=== PATIENT | male | born 1950 | race Hispanic/Latino ===

== ENCOUNTER 2017-04-19 10:03 | Observation (INO) | payer MEDICARE ==
--- NOTE | 2017-04-19 10:05 | NUR ---
PATIENT TO ROOM AND PHYSICIAN AT BEDSIDE FOR EVAL
--- NOTE | 2017-04-19 10:10 | NUR ---
NITROSTAT AND APRESOLINE HELD AT THIS TIME PER MD VERBAL ORDER.
[2017-04-19 10:32] LABS: HEMOGLOBIN 14.3 g/dl (14.0-18.0); IMMATURE GRANULOCYTES 0.2 % (0.0-1.0); MEAN CELL VOLUME 92.3 fL CALC (80.0-100.0); MEAN CORPUSCULAR HGB 32.2 pG CALC (26.0-32.0); MEAN CORPUSCULAR HGB CONC 34.9 g/L CALC (32.0-36.0); NEUT# 3.57 thou/uL (1.82-7.42); RED BLOOD COUNT 4.44 mill/uL (4.70-6.10); RED CELL DISTRI WIDTH 13.9 % (11.5-15.5)
[2017-04-19] MEDS ORDERED: ATORVASTATIN CA40 MG PO (10:40)
[2017-04-19] MEDS ORDERED: BAYER ASPIRIN E81 MG PO (10:41)
[2017-04-19] MEDS ORDERED: CLOPIDOGREL75 MG PO (10:41)
[2017-04-19] MEDS ORDERED: METFORMIN500 MG PO (10:43)
[2017-04-19] MEDS ORDERED: GLIPIZIDE5 MG PO (10:43)
[2017-04-19] MEDS ORDERED: METOPROL TAR25 MG PO (10:44)
--- NOTE | 2017-04-19 11:00 | NUR ---
PATIENT RESTING ON STRETCHER ALERT AND ORIENTED X3, NO DISTRESS NOTED. REPORTS CHEST PAIN 1/10 AT THIS TIME. AT BEDSIDE, WILL CONTINUE TO MONITOR. CALL LIGHT WITHIN REACH, AT BEDSIDE.
[2017-04-19 11:11] LABS: ANION GAP 18 (6-22 (CALC)); BUN 12 mg/dL (8-23); BUN/CREATININE RATIO 14 (12-20 (CALC)); CARBON DIOXIDE 20 mmol/l (22-30); CHLORIDE 108 mmol/l (95-108); CREATININE 0.8 mg/dL (0.7-1.3); GFR > 60 ML/MIN (>=60 (CALC)); GFR FOR AFR.AMER. > 60 ML/MIN (>=60 (CALC)); POTASSIUM 4.4 mmol/l (3.5-5.1); SODIUM 141 mmol/l (137-146)
--- NOTE | 2017-04-19 11:40 | NUR ---
PATIENT RESTING ON STRETCHER UPDATED ON CARE PLAN, WILL CONTINUE TO MONITOR.
--- NOTE | 2017-04-19 11:42 | NUR ---
ATTEMPT MADE TO CALL REPORT, SPOKE TO NEYMAR. STATES "NURSE IS IN A PATIENT ROOM, I WILL HAVE HER CALL BACK."
--- NOTE | 2017-04-19 12:50 | NUR ---
LUNCH TRAY PROVIDED, UPDATED ON WAIT TIME, WILL CONTINUE TO MONITOR.
--- NOTE | 2017-04-19 13:39 | NUR ---
ATTEMPT MADE TO CALL REPORTS, SPOKE TO CYNTHIA. STATES "NURSE IS PASSING MEDS." WILL CALL BACK
--- NOTE | 2017-04-19 14:22 | NUR ---
REPORT GIVEN TO ADRIEN SALAS. STATES "I WILL CALL YOU BACK WHEN TELE AVAILABLE."
--- NOTE | 2017-04-19 14:30 | NUR ---
PATIENT AMBULATES TO BATHROOM WITH STEADY GAIT, URINE SAMPLE OBTAINED. REPORTS CHEST PAIN LEVEL 0/10 AT THIS TIME. INFORMED TO CALL FOR ASSISTANCE AND IF CHEST PAIN RETURNS. CALL LIGHT WITHIN REACH.
[2017-04-19 15:16] VITALS: BP 119/70
--- NOTE | 2017-04-19 15:20 | NUR ---
PATIENT TRANSPORTED TO [facility] WITH TELE VIA WHEELCHAIR. BEDSIDE REPORT GIVEN TO ADRIEN SALAS. CARE RELINQUIHSED.
[2017-04-19 15:23] LABS: URINE BILIRUBIN - DIPSTICK NEGATIVE (NEGATIVE); URINE BLOOD DIPSTICK NEGATIVE (NEGATIVE); URINE COLOR YELLOW; URINE GLUCOSE - DIPSTICK >=1000 mg/dL (NEGATIVE); URINE KETONE NEGATIVE (NEGATIVE); URINE LEUK ESTERASE NEGATIVE (NEGATIVE); URINE NITRITE - DIPSTICK NEGATIVE (Negative); URINE PH 5.5 (4.5-8.0); URINE PROTEIN - DIPSTICK NEGATIVE (NEG-TRACE); URINE SPECIFIC GRAVITY 1.015; URINE UROBILINOGEN - DIPSTICK 0.2 E.U./dL (0.2)
[2017-04-19 15:24] LABS: URINE CLARITY CLEAR
--- NOTE | 2017-04-19 16:02 | NUR ---
REPORT RECEIVED FROM MENDOZA ESPARZA ARRIVED ON UNIT VIA W/C @ 1510, ALERT AND ORIENTED X 4, ORIENTED TO ROOM AND CALL JUAREZ. DENIES PAIN AT THIS TIME, TELE MONITOR IN PLACE. REPORTED HE MOVED FROM [place] RECENTLY AND THAT MOVE HAS BEEN STRESSFUL FOR HIM. WILL CONTINUE TO MONITOR, SPOUSE JUST ARRIVED AND SITTING AT BEDSIDE.
--- NOTE | 2017-04-19 19:00 | NUR ---
RECEIVED CHANGE OF SHIFT REPORT FROM ADRIEN SALAS. PATIENT LYING IN BED AND APPEARS NOT TO BE IN ANY APPARENT ACUTE DISTRESS OR DISCOMFORT. DENIES PAIN. WILL CONTINUE TO MONITOR.
[2017-04-19 19:35] VITALS: BP 119/73
[2017-04-19 23:50] VITALS: BP 108/55
--- NOTE | 2017-04-20 | NUR ---
PATIENT RESTING QUIETLY. NO APPARENT ACUTE DISTRESS NOTED.
[2017-04-20 04:00] VITALS: BP 114/67
--- NOTE | 2017-04-20 04:00 | NUR ---
PATIENT RESTING QUIETLY AT THIS TIME. NO APPARENT ACUTE CHANGES NOTED IN PATIENT'S CONDITION.
[2017-04-20 06:17] LABS: HEMATOCRIT 38.4 % (39.0-50.0); HEMOGLOBIN 13.2 g/dl (14.0-18.0); MEAN CELL VOLUME 91.9 fL CALC (80.0-100.0); MEAN CORPUSCULAR HGB 31.6 pG CALC (26.0-32.0); MEAN CORPUSCULAR HGB CONC 34.4 g/L CALC (32.0-36.0); RED BLOOD COUNT 4.18 mill/uL (4.70-6.10); RED CELL DISTRI WIDTH 13.9 % (11.5-15.5)
[2017-04-20 06:33] LABS: ANION GAP 16 (6-22 (CALC)); BUN 10 mg/dL (8-23); BUN/CREATININE RATIO 13 (12-20 (CALC)); CALCULATED LDLCHOLESTEROL 84 mg/dL (62-129 (CALC)); CARBON DIOXIDE 21 mmol/l (22-30); CHLORIDE 111 mmol/l (95-108); CHOLESTEROL HDL RATIO 4.5 (<4.4 (CALC)); CREATININE 0.7 mg/dL (0.7-1.3); GFR > 60 ML/MIN (>=60 (CALC)); GFR FOR AFR.AMER. > 60 ML/MIN (>=60 (CALC)); HDL CHOLESTEROL 34 mg/dL (>=40); MAGNESIUM 1.8 mg/dL (1.6-2.3); SODIUM 144 mmol/l (137-146); TOTAL CHOLESTEROL 152 mg/dl (0-199); TOTAL TRIGLYCERIDES 171 mg/dl (30-149); VLDL CHOLESTROL 34 mg/dl (4-45 (CALC))
--- NOTE | 2017-04-20 07:23 | NUR ---
SHIFT CHANGE REPORT FROM MENDOZA KERNS SLEEPING COMFORTABLY AT THIS TIME, BREATHING EVEN AND NON-LABORED, TELE MONITOR IN PLACE, CALL JUAREZ IN REACH.
--- NOTE | 2017-04-20 07:46 | NUR ---
AWAKE ALERT AND ORIENTED SITTING UP AT BEDSIDE FOR MEAL, DENIES PAIN, SPOUSE JUST ARRIVED.
[2017-04-20 08:42] VITALS: BP 114/64
[2017-04-20 11:14] VITALS: BP 114/62
--- NOTE | 2017-04-20 15:04 | NUR ---
Discharge instructions given. Patient verbalizes understanding of same. Discharged in good condition via Wheelchair to Home with spouse. All belongings sent with pt.
== END 2017-04-20 15:05 | disposition home or self-care (01) ==
LOC: ED 10:03 → ED-I 11:12 → ED 11:31 → MS2 11:32
PROVIDERS: Family Medicine; ADMIT Internal Medicine; ATTEND Internal Medicine
PROC: 3E0234Z Introduction of Serum, Toxoid and Vaccine into Muscle, Percutaneous Approach (ICD-10-PCS; principal; 2017-04-20)
DX: R07.9 Chest pain, unspecified (principal); E11.9 Type 2 diabetes mellitus without complications; I10 Essential (primary) hypertension; Z95.5 Presence of coronary angioplasty implant and graft; Z95.1 Presence of aortocoronary bypass graft; Z79.84 Long term (current) use of oral hypoglycemic drugs; Z23 Encounter for immunization

== ENCOUNTER 2018-03-29 14:18 | Emergency (ER) | payer MEDICARE ==
[~2018-03-29] VITALS: Ht 175.3 cm; Wt 97.3 kg
[~2018-03-29 14:18] MED LIST: ATORVASTATIN CA40 MG PO; BAYER ASPIRIN E81 MG PO; CLOPIDOGREL75 MG PO; GLIPIZIDE5 MG PO; METFORMIN500 MG PO; METOPROL TAR25 MG PO
[2018-03-29 14:53] LABS: GFR > 60 ML/MIN (>=60 (CALC)); GFR FOR AFR.AMER. > 60 ML/MIN (>=60 (CALC))
[2018-03-29 15:02] LABS: HEMATOCRIT 39.2 % (39.0-50.0); HEMOGLOBIN 14.1 g/dl (14.0-18.0); IMMATURE GRANULOCYTES 0.3 % (0.0-5.0); MEAN CELL VOLUME 89.7 fL CALC (80.0-100.0); MEAN CORPUSCULAR HGB 32.3 pG CALC (26.0-32.0); NEUT# 3.07 thou/uL (1.82-7.42); RED BLOOD COUNT 4.37 mill/uL (4.70-6.10); RED CELL DISTRI WIDTH 12.1 % (11.5-15.5)
[2018-03-29 15:12] LABS: ALBUMIN 4.4 g/dL (3.2-5.0); ALKALINE PHOSPHATASE 68 u/l (38-126); ANION GAP 17 (6-22 (CALC)); BILIRUBIN, TOTAL 0.9 mg/dL (0.0-1.4); BUN 13 mg/dL (8-23); BUN/CREATININE RATIO 16 (12-20 (CALC)); CARBON DIOXIDE 21 mmol/l (22-30); CHLORIDE 105 mmol/l (95-108); CREATININE 0.8 mg/dL (0.7-1.3); GFR > 60 ML/MIN (>=60 (CALC)); GFR FOR AFR.AMER. > 60 ML/MIN (>=60 (CALC)); POTASSIUM 4.3 mmol/l (3.5-5.1); SGOT/AST 51 u/l (19-48); SODIUM 138 mmol/l (137-146); TOTAL PROTEIN 7.6 g/dL (6.3-8.2)
[2018-03-29 15:24] LABS: MYOGLOBIN 33 ng/mL (0 - 121)
[2018-03-29 16:25] VITALS: BP 141/68
== END 2018-03-29 16:25 | disposition short-term general hospital (02) ==
LOC: ED 14:18
PROVIDERS: Emergency Medicine
DX: I63.9 Cerebral infarction, unspecified (principal); R27.0 Ataxia, unspecified; I10 Essential (primary) hypertension; R29.703 NIHSS score 3; R53.1 Weakness; R42 Dizziness and giddiness; I65.23 Occlusion and stenosis of bilateral carotid arteries
CPT/HCPCS: Q9967

== ENCOUNTER → 2018-05-14 | Outpatient (REF) | payer MEDICARE ==
[2018-05-14 08:15] LABS: HEMATOCRIT 40.2 % (39.0-50.0); HEMOGLOBIN 13.7 g/dl (14.0-18.0); MEAN CELL VOLUME 92.4 fL CALC (80.0-100.0); MEAN CORPUSCULAR HGB 31.5 pG CALC (26.0-32.0); MEAN CORPUSCULAR HGB CONC 34.1 g/L CALC (32.0-36.0); RED BLOOD COUNT 4.35 mill/uL (4.70-6.10); RED CELL DISTRI WIDTH 13.1 % (11.5-15.5)
[2018-05-14 08:40] LABS: ALBUMIN 4.4 g/dL (3.2-5.0); ALKALINE PHOSPHATASE 73 u/l (38-126); ANION GAP 16 (6-22 (CALC)); BILIRUBIN, TOTAL 0.9 mg/dL (0.0-1.4); BUN 17 mg/dL (8-23); BUN/CREATININE RATIO 18 (12-20 (CALC)); CALCULATED LDLCHOLESTEROL 65 mg/dL (62-129 (CALC)); CARBON DIOXIDE 24 mmol/l (22-30); CHLORIDE 105 mmol/l (95-108); CHOLESTEROL HDL RATIO 3.5 (<4.4 (CALC)); CREATININE 0.9 mg/dL (0.7-1.3); GFR > 60 ML/MIN (>=60 (CALC)); GFR FOR AFR.AMER. > 60 ML/MIN (>=60 (CALC)); HDL CHOLESTEROL 40 mg/dL (>=40); POTASSIUM 4.2 mmol/l (3.5-5.1); SGOT/AST 21 u/l (19-48); SODIUM 140 mmol/l (137-146); TOTAL CHOLESTEROL 141 mg/dl (0-199); TOTAL TRIGLYCERIDES 178 mg/dl (30-149); VLDL CHOLESTROL 36 mg/dl (4-45 (CALC))
== END | disposition home or self-care (01) ==
LOC: LAB 07:36
PROVIDERS: ATTEND Internal Medicine
DX: I25.42 Coronary artery dissection (principal); I10 Essential (primary) hypertension; E11.42 Type 2 diabetes mellitus with diabetic polyneuropathy

== ENCOUNTER 2019-02-18 08:54 | Inpatient (IN) | payer MEDICARE ==
[~2019-02-18] VITALS: Ht 175.3 cm; Wt 94.6 kg
--- NOTE | 2019-02-18 08:54 | NUR ---
TO ROOM 12 VIA EMS
--- NOTE | 2019-02-18 09:07 | NUR ---
PT C/O FLU LIKE SYMTPOMS X 3-4 DAYS WEAKNESS, FEVERS, COUGH CONGESTION WITH N/V WELL, FELL AT HOME X 1 RELATED TO WEAKNESS, COMFORT MEASURES PROVIDED, CALL JUAREZ WITHIN REACH
[2019-02-18 09:24] LABS: IMMATURE GRANULOCYTES 0.9 % (0.0-5.0); MEAN CELL VOLUME 91.7 fL CALC (80.0-100.0); MEAN CORPUSCULAR HGB 31.4 pG CALC (26.0-32.0); MEAN CORPUSCULAR HGB CONC 34.2 g/L CALC (32.0-36.0); NEUT# 3.9 thou/uL (1.82-7.42); RED BLOOD COUNT 3.38 mill/uL (4.70-6.10); RED CELL DISTRI WIDTH 12.8 % (11.5-15.5)
[2019-02-18 09:36] LABS: ALKALINE PHOSPHATASE 56 u/l (38-126); BILIRUBIN, TOTAL 0.9 mg/dL (0.0-1.4); BUN 24 mg/dL (8-23); BUN/CREATININE RATIO 23 (12-20 (CALC)); CHLORIDE 106 mmol/l (95-108); GFR > 60 ML/MIN (>=60 (CALC)); GFR FOR AFR.AMER. > 60 ML/MIN (>=60 (CALC)); LIPASE 19 u/l (23-300); POTASSIUM 3.8 mmol/l (3.5-5.1); SGOT/AST 22 u/l (19-48); SODIUM 135 mmol/l (137-146)
[2019-02-18 09:40] LABS: ALBUMIN 3.1 g/dL (3.2-5.0); ANION GAP 15 (6-22 (CALC)); CARBON DIOXIDE 18 mmol/l (22-30); TOTAL PROTEIN 5.7 g/dL (6.3-8.2)
[2019-02-18 09:50] LABS: HEMOGLOBIN 10.6 g/dl (14.0-18.0)
--- NOTE | 2019-02-18 10:00 | NUR ---
INTO SEE PATIENT, PLAN OF CARE DISCUSSED
--- NOTE | 2019-02-18 11:07 | NUR ---
MD SPEAKING WITH PATIENT AND SPOUSE REGARDING ADMISSION
--- NOTE | 2019-02-18 12:01 | NUR ---
PT AWARE OF NEED FOR BC PRIOR TO RUNNING IV ABT, IVF INFUSING ORDERED
[2019-02-18] MEDS ORDERED: PROTONIX40 M2 PO (12:24)
--- NOTE | 2019-02-18 12:30 | NUR ---
LARGE BANDAIAD APPLIED TO WOUND ON INNER ASPECT OF LEFT GREAT TOE. SMALL AMOUTN SERO/SANG NANY NOTED
--- NOTE | 2019-02-18 13:00 | NUR ---
PT REMAINS AT MRI AWARE OF PENDING ADMISSION
--- NOTE | 2019-02-18 14:04 | NUR ---
RECEIVED [facility]O ER INTO ROOM 263 VIA STRETCHER. ADMISSION WEIGHT ON STANDING SCALE 94.6 KG. ASSISTED PATIENT INTO BED. ORIENTED TO SURROUNDINGS. EXPLAINED USE OF CALL JUAREZ AND BED CONTROLS.
--- NOTE | 2019-02-18 14:05 | NUR ---
PT TRANSFERRED TO MED SURG VIA WHEELCAHIR ON TELE AT SIDE AND ALL BELONGINGS SENT WITH PATIENT.
[2019-02-18 14:14] VITALS: BP 110/66
--- NOTE | 2019-02-18 14:25 | NUR ---
ADMISSION ASSESSMENT COMPLETED. RESP NON-LABORED. LUNGS CLEAR NO PERIPHERAL EDEMA, LUNGS CLEAR THROUGHOUT. IV IN LAC, SITE BENIGN. LR FLUID BOLUS IN PROGRESS. DISCUSSED PLAN OF CARE. ORDERED PATIENT A LUNCH TRAY. DENIES NEEDS AT THIS TIME.
--- NOTE | 2019-02-18 16:04 | NUR ---
RESTING IN BED WITHOUT COMPLAINTS. AT BEDSIDE.
--- NOTE | 2019-02-18 17:15 | NUR ---
PATIENT C/O CHILLS. TEMP 100.9. MEDICATED WITH TYLENOL 650 MG PO FOR TEMP ORDERED.
--- NOTE | 2019-02-18 17:30 | NUR ---
PHOTO DOCUMENTATION AND MEASUREMENTS DONE OF LEFT GREAT TOE WOUND. CULTURE OBTAINED WELL. PATIENT VOIDING CLEAR EDWARD URINE, URINE FOR UA SENT.
[2019-02-18 17:32] VITALS: BP 129/64
--- NOTE | 2019-02-18 18:15 | NUR ---
RECHECK OF TEMP 98.7.
[2019-02-18 19:12] LABS: URINE BILIRUBIN - DIPSTICK NEGATIVE (NEGATIVE); URINE BLOOD DIPSTICK SMALL (NEGATIVE); URINE COLOR YELLOW; URINE GLUCOSE - DIPSTICK 100 mg/dL (NEGATIVE); URINE KETONE NEGATIVE (NEGATIVE); URINE LEUK ESTERASE NEGATIVE (NEGATIVE); URINE NITRITE - DIPSTICK NEGATIVE (Negative); URINE PROTEIN - DIPSTICK TRACE mg/dL (NEG-TRACE); URINE SPECIFIC GRAVITY >=1.030; URINE UROBILINOGEN - DIPSTICK 0.2 E.U./dL (0.2)
[2019-02-18 19:13] VITALS: BP 101/54
[2019-02-18 19:39] LABS: URINE WBC 0-2 WBC/hpf (0-5)
[2019-02-18 22:04] VITALS: BP 92/48
--- NOTE | 2019-02-18 22:17 | NUR ---
2154-RECEIVED CALL FROM [facility] IN ER-STATES THAT LOOKS LIKE PATIENT HAS SWITCHED RYTHM ON TELE FROM SR TO A-FIB. PATIENT RESTING IN BED-ASYMPTOMATIC WITH NO C/O CHEST PAIN. NO PALPATATIONS, NO FLUTTER-NO SOB. VS TAKEN AND PMTLDSDG-IY-33/48, P-71, O2 SAT-96 ON O2 AND AFEBRILE-96.9. EKG WAS DONE AND SHOWS SR-WITH PREMATURE SUPRAVENTRICULAR COMPLEXES WITH OOC PVC'S. SAFETY PRECAUTIONS REINFORCED WITH PATIENT. CALL LIGHT IN REACH. WILL CONT TO MONITOR.
[2019-02-19] VITALS (14 sets, daily range): BP systolic 98–135; BP diastolic 52–68
--- NOTE | 2019-02-19 00:16 | NUR ---
PATIENT FOUND COMING OUT OF THE BR WITH TELE MONITOR DANGLING FREELY AND WHAT APPEARS TO BE URINE ON THE FLOOR AROUND HIS BED. PATIENT IS UNSTEADY ON HIS FEET. PATIENT STATES THAT HE IS HAVING TROUBLE CONTROLLING HIS URINE SINCE BEING HERE AT THE HOSPITAL. PATIENT MOVED FROM 263 TO 261 FOR SAFETY REASONS. PATIENT ORIENTED TO NEW ROOM AND SURROUNDINGS. IV ZOSYN HUNG AND INFUSING VIA LEFT ARM IV SITE. TELE MONITOR INPLACE. PATIENT ASSISTED WITH NEW GOWN. PATIENT PROVIDED WITH NEW URINAL AT BEDSIDE AND INSTRUCTIONS ON USE.. SAFETY PRECAUTIONS REINFORCED. CALL LIGHT IN REACH. WILL CONT TO MONITOR.
--- NOTE | 2019-02-19 04:26 | NUR ---
PATIENT RESTING IN BED-AWAKE AND ALERT. USING URINAL AT BEDSIDE TO URINATE. NO FURTHER INCONT OR SPILLAGE OF URINE. LEFT TOE BANDAID REMAINS INTACT. FOOT IS WARM AND DRY WITH GOOD PEDAL PULSES. IVF PATENT ANDINFUSING ORDERED VIA LEFT ARM IV SITE. SAFETY PRECAUTIONS REINFORCED. CALL LIGHT IN REACH. WILL CONT TO MONITOR.
[2019-02-19 04:56] LABS: HEMATOCRIT 34.5 % (39.0-50.0); HEMOGLOBIN 11.5 g/dl (14.0-18.0); MEAN CORPUSCULAR HGB 31.3 pG CALC (26.0-32.0); MEAN CORPUSCULAR HGB CONC 33.3 g/L CALC (32.0-36.0); RED BLOOD COUNT 3.67 mill/uL (4.70-6.10); RED CELL DISTRI WIDTH 12.9 % (11.5-15.5)
[2019-02-19 05:10] LABS: ANION GAP 13 (6-22 (CALC)); BUN 18 mg/dL (8-23); BUN/CREATININE RATIO 22 (12-20 (CALC)); CHLORIDE 105 mmol/l (95-108); CREATININE 0.8 mg/dL (0.7-1.3); GFR > 60 ML/MIN (>=60 (CALC)); GFR FOR AFR.AMER. > 60 ML/MIN (>=60 (CALC)); POTASSIUM 3.8 mmol/l (3.5-5.1); SODIUM 136 mmol/l (137-146)
[2019-02-19 05:14] LABS: CARBON DIOXIDE 22 mmol/l (22-30)
--- NOTE | 2019-02-19 08:00 | NUR ---
ASSESSMENT DONE. TELE IN PLACE. PT IS A&O X3. IVF INFUSING WELL. PT NPO. PT DENIES PAIN AT THIS TIME. LEFT DRESSING IN PLACE. RESPS EVEN AND UNLABORED. PT DENIES ANY NEEDS AT THIS TIME. CALL LIGHT IN REACH.
--- NOTE | 2019-02-19 11:17 | NUR ---
PT IS SITTING IN RECLINER WITH NO S/S OF DISTRESS NOTED. IN ROOM. CALL LIGHT IN REACH.
--- NOTE | 2019-02-19 11:36 | NUR ---
PT WENT TO OR VIA STRETCHER BY FAITH AND AT SIDE.
--- NOTE | 2019-02-19 14:10 | NUR ---
PT CAME FROM OR VIA STRETCHER BY MIN. LEFT FOOT WOUND VAC IN PLACE WITH DRESSING CDI. PT DENIES PAIN AT THIS TIME. IVF INFUSING WELL. EDUCATED PT HOW TO USE THE I.S. PO FLUIDS PROVIDED. CALL LIGHT IN REACH.
--- NOTE | 2019-02-19 15:04 | NUR ---
MEDICATED PT WITH TYLENOL FOR 100.8. MADE ROOM COOL. PT IN ROOM. PT DENIES PAIN AT THIS TIME. CALL LIGHT IN REACH.
[2019-02-19] MEDS ORDERED: LEVEMIR FL100 UNIT/M SC (15:53)
--- NOTE | 2019-02-19 16:47 | NUR ---
S: JOSEP BRIGHT is a 68 M who presents with cellulitis of left foot. He has a history of T2DM, HTN, CAD s.p CABG, TIA, left foot I&D x 5 weeks ago All medications in patient's chart were reviewed. O: VS: BP 109/59 mmHg , P 77, RR 20, ,T 100.5, TMAX 100.8 W 94.6kg, HT69 inches, Scr=0.8,CrCl= 79.2ml/min A: Blood cultures are pending, wound culture of left toe positive for gram negative rods, awaiting final sensitivity. P: Patient is on Zosyn 3.375gm IV q6h. Vancomycin ordered for pharmacy to dose. Start Vancomycin 1.25G IV Q12H @ 0900, 2100. Vancomycin trough to be drawn on 02/20 @ 2030, 30 minutes prior to the 4th dose. Vancomycin goal trough is between 15-20 mcg/ml. Pharmacy will follow and or advise on antibiotics use as needed.
--- NOTE | 2019-02-19 19:10 | NUR ---
REPORT FROM JONATAN JURADO. PT RESTING IN BED. ALERT AND ORIENTED. NO APPARENT DISTRESS NOTED. LEFT FOOT ELEVATED ON PILLOW. DENIES ANY PAIN OR DISCOMFORT. IV SITE APPEARS HEALTHY. IS AT BEDSIDE, PT DEMONSTATES PROPER USE. AFEBRILE AT THIS TIME. DISCUSSED POC. PT VERBALIZED UNDERSTANDING. CALL LIGHT WITHIN REACH. WILL CONTINUE TO MONITOR.
--- NOTE | 2019-02-19 21:50 | NUR ---
PT C/O SOB. PT ASSISTED OUT OF BED AND PLACED IN RECLINER PER REQUEST. LEFT FOOT ELEVATED ON PILLOW. WOUND VAC AND DRESSING INTACT. 02 SAT 95% ON 2L/M VIA NC. LUNG SOUNDS CLEAR. PT DENIES ANY HX OF RESPIRATORY ISSUES. ONCE SITTING UP IN CHAIR PT STATES HE FEELS MUCH BETTER. VS WNL. ENCOURGAED TURN, COUGH, AND DEEP BREATHING EXERCISE AND USE OF IS, PT DEMONSTRATES PROPER USE. WILL CONTINUE TO MONITOR.
--- NOTE | 2019-02-19 22:53 | NUR ---
PT RESTING IN CHAIR. RESPIRATIONS EVEN AND UNLABORED. PT DENIES ANY PAIN OR DISCOMFORT. IV ABT INFUSING WITHOUT DIFFICULTY, NO S/S OF ADVERSE REACTION NOTED. CALL LIGHT WITHIN REACH. WILL CONTINUE TO MONITOR.
--- NOTE | 2019-02-20 02:15 | NUR ---
PT SITTING UP IN CHAIR RESTING WITH EYES CLOSED. NO APPARENT RESPIRATORY DISTRESS NOTED. RESPIRATIONS EVEN AND UNLABORED. CALL LIGHT WITHIN REACH. WILL CONTINUE TO MONITOR.
[2019-02-20 03:39] VITALS: BP 106/64
[2019-02-20 04:45] LABS: HEMATOCRIT 31.7 % (39.0-50.0); HEMOGLOBIN 10.8 g/dl (14.0-18.0); IMMATURE GRANULOCYTES 0.4 % (0.0-5.0); MEAN CELL VOLUME 91.4 fL CALC (80.0-100.0); MEAN CORPUSCULAR HGB 31.1 pG CALC (26.0-32.0); MEAN CORPUSCULAR HGB CONC 34.1 g/L CALC (32.0-36.0); NEUT# 3.51 thou/uL (1.82-7.42); RED BLOOD COUNT 3.47 mill/uL (4.70-6.10); RED CELL DISTRI WIDTH 13.1 % (11.5-15.5)
[2019-02-20 05:03] LABS: ANION GAP 14 (6-22 (CALC)); BUN 13 mg/dL (8-23); BUN/CREATININE RATIO 16 (12-20 (CALC)); CARBON DIOXIDE 23 mmol/l (22-30); CHLORIDE 102 mmol/l (95-108); CREATININE 0.9 mg/dL (0.7-1.3); GFR > 60 ML/MIN (>=60 (CALC)); GFR FOR AFR.AMER. > 60 ML/MIN (>=60 (CALC)); MAGNESIUM 2.1 mg/dL (1.6-2.3); SODIUM 135 mmol/l (137-146)
--- NOTE | 2019-02-20 06:25 | NUR ---
ASSISTED PT BACK TO BED. DENIES ANY PAIN OR DISCOMFORT. RESPIRATIONS EVEN AND UNLABORED. FOOT ELEVATED ON PILLOW. WOUND VAC FUNCTIONING PROPERLY WITH CONTINUOUS SUCTION AT 125MMHG. CALL LIGHT WITHIN REACH. WILL CONTINUE TO MONITOR.
[2019-02-20 07:31] VITALS: BP 128/57
--- NOTE | 2019-02-20 07:32 | NUR ---
ASSESSMENT DONE. PT IS A&O X2. PT HAS A TEMP OF 100.9. MADE ROOM COOL. MEDICATED PT WITH TYLENOL. PT DENIES PAIN AT THIS TIME. PT STATED HE FEELS BETTER THAN LAST NIGHT. PT BEEN USING THE I.S. IVF INFUSING WELL. LEFT FOOT DRESSING IN PLACE WITH WOUND VAC. PT DENIES NEEDS AT THIS TIME. CALL LIGHT IN REACH.
--- NOTE | 2019-02-20 09:37 | NUR ---
I ENTERED THE CONSULTAION ORDERED FOR INFECTIOUS DISEASE @0924 AM. THE CONSULT WAS FOR FEVERS FROM POST OP LEFT FOOT CELLULITUS. WAITING FOR DR. WALLS TO RESPOND.
[2019-02-20 11:22] VITALS: BP 103/57
--- NOTE | 2019-02-20 12:00 | NUR ---
PT IS SITTING IN RECLINER RESTING. IN ROOM. O2 AT 2L VIA NC. PT DENIES ANY NEEDS OR PAIN. CALL LIGHT IN REACH.
--- NOTE | 2019-02-20 16:00 | NUR ---
PT IS SITTING IN RECLINER WITH LEFT LEG IS ELEVATED. PT STATED PAIN MEDICATION HELPED. PT DENIES ANY NEEDS AT THIS TIME. CALL LIGHT IN REACH.
[2019-02-20 17:22] VITALS: BP 117/62
[2019-02-20 18:55] VITALS: BP 127/70
--- NOTE | 2019-02-20 19:00 | NUR ---
REPORT FROM JONATAN JURADO. PT SITTING UP IN CHAIR AT BEDSIDE. ALERT AND ORIENTED. NO APPARENT DISTRESS NOTED. LEFT FOOT ELEVATED ON PILLOW. DENIES ANY PAIN OR DISCOMFORT. IV SITE APPEARS HEALTHY. IS AT BEDSIDE, PT DEMONSTATES PROPER USE. AFEBRILE AT THIS TIME. DRESSING TO LEFT FOOT CDI WITH WOUND VAC FUNCTIONING PROPERLY AT 125MMHG CONTINUOUS SUCTION. DISCUSSED POC. PT VERBALIZED UNDERSTANDING. CALL LIGHT WITHIN REACH. WILL CONTINUE TO MONITOR.
--- NOTE | 2019-02-20 19:32 | NUR ---
ID CONSULT WITH DR WALLS VIA TELECONSULT SERVICE.
[2019-02-20 23:49] VITALS: BP 112/64
--- NOTE | 2019-02-20 23:55 | NUR ---
ASSISTED PT BACK TO BED. NO APPARENT DISTRESS NOTED. FOOT ELEVATED ON PILLOWS. IV ABT INFUSING WITHOUT DIFFICULTY. PT DENIES ANY OTHER WANTS OR NEEDS. CALL LIGHT WITHIN REACH. WILL CONTINUE TO MONITOR.
--- NOTE | 2019-02-21 03:42 | NUR ---
PT RESTING IN BED. NO APPARENT DISTRESS NOTED. RESPIRATIONS EVEN AND UNLABORED. FOOT ELEVATED ON PILLOW. WOUND VAC FUNCTIONING PROPERLY WITH CONTINUOUS SUCTION AT 125MMHG. CALL LIGHT WITHIN REACH. WILL CONTINUE TO MONITOR.
[2019-02-21 03:43] VITALS: BP 151/65
[2019-02-21 04:51] LABS: HEMATOCRIT 27.7 % (39.0-50.0); HEMOGLOBIN 9.9 g/dl (14.0-18.0); IMMATURE GRANULOCYTES 0.3 % (0.0-5.0); MEAN CELL VOLUME 88.8 fL CALC (80.0-100.0); MEAN CORPUSCULAR HGB 31.7 pG CALC (26.0-32.0); MEAN CORPUSCULAR HGB CONC 35.7 g/L CALC (32.0-36.0); NEUT# 4.18 thou/uL (1.82-7.42); RED BLOOD COUNT 3.12 mill/uL (4.70-6.10); RED CELL DISTRI WIDTH 12.9 % (11.5-15.5)
[2019-02-21 05:05] LABS: ANION GAP 12 (6-22 (CALC)); BUN 9 mg/dL (8-23); BUN/CREATININE RATIO 13 (12-20 (CALC)); CARBON DIOXIDE 23 mmol/l (22-30); CHLORIDE 103 mmol/l (95-108); CREATININE 0.7 mg/dL (0.7-1.3); GFR > 60 ML/MIN (>=60 (CALC)); GFR FOR AFR.AMER. > 60 ML/MIN (>=60 (CALC)); MAGNESIUM 1.9 mg/dL (1.6-2.3); POTASSIUM 3.4 mmol/l (3.5-5.1); SODIUM 135 mmol/l (137-146)
[2019-02-21 07:30] VITALS: BP 109/61
--- NOTE | 2019-02-21 08:40 | NUR ---
ASSESSMENT IS COMPLTED: IV SITE IS FREE FROM REDNESS OR EDEMA. HR IS REG,PULSES ARE STRONG X4, ABD IS SOFT WITH ACTIVE BS. BREATH SOUNDS ARE CLEAR, BILATERALLY. DRESSING ON LEFT FOOT IS CDI. WOUND VAC DRESSING IS OFF FOR NOW DR MACK IN TO VISIT WITH PT.
--- NOTE | 2019-02-21 12:15 | NUR ---
PT IS SITTING IN THE CHAIR, DR. SEXTON IN TO VISIT WITH PT AND SPOUSE WILL PLAN TO RELEASE TOMORROW. DR THAKUR FROM WOUND CARE WILL SEE PT TOMORROW FOR THE WOUND VAC PLACEMENT., IV SITE REMAINS FREE FROM REDNESS OR EDEMA.
[2019-02-21 15:15] VITALS: BP 115/64
--- NOTE | 2019-02-21 16:30 | NUR ---
PT HAS BEEN IN THE CHAIR WITH NO DISTRESS NOTED. IV SITE IS FREE FROM REDNESS OR EDEMA.
[2019-02-21 18:55] VITALS: BP 145/67
--- NOTE | 2019-02-21 20:15 | NUR ---
PT SITTING IN RECLINER WATCHING TV. A&O X3. NO DISTRESS NOTED. NO NEEDS AT THIS TIME. WOUND VAC IN PLACE @ 125 MMHG CONTINIOUS SUCTION. DISCUSSED POC. ASSESSMENT COMPLETED AT THIS TIME. CALL LIGHT IN REACH CONTINUE TO MONITOR.
[2019-02-21 23:42] VITALS: BP 129/63
--- NOTE | 2019-02-21 23:50 | NUR ---
PT SITTING IN RECLINER WATCHING TV. NO DISTRESS NOTED. CALL LIGHT IN REACH CONTINUE TO MONITOR.
--- NOTE | 2019-02-22 02:01 | NUR ---
PT SITTING IN RECLINER WATCHING TV. NO DISTRESS NOTED. CALL LIGHT IN REACH. CONTINUE TO MONITOR.
[2019-02-22 03:40] VITALS: BP 144/66
--- NOTE | 2019-02-22 05:49 | NUR ---
PT SITTING IN RECLINER WATCHING TV. NO DISTRESS NOTED. NO NEEDS AT THIS TIME. CALL LIGHT IN REACH CONTINUE TO MONITOR.
[2019-02-22 07:30] VITALS: BP 119/57
--- NOTE | 2019-02-22 07:30 | NUR ---
DR SEXTON IN TO VISIT WITH PT. REMOVED THE DRESSING ON HIS LEFT FOOT. REPLACED WITH FRESH DRESSING FOR THE WOUND VAC. COVERED WITH 4X4 AND KERLIX THEN AYE WRAP TO KEEP IT IN PLACE AND PROTECT THE SKIN. PT TOLERATED WELL. INCISION LOOKS CDI. WITH SUTURES INTACT. MINIMAL AMOUNT OF BLOODY DRAINAGE. SKIN IS PUFFY ON THE TOE AND HAS RED FLESH SHOWING IN THE INCISION. DR SEXTON USING CLEAN TECHNIQUE.
--- NOTE | 2019-02-22 08:15 | NUR ---
ASSESSMENT IS COMPLETED: IV SITE IS FREE FROM REDNESS OR EDEMA. NOTED. HR IS REG,PULSES ARE STRONG X4, ABD IS SOFT WITH ACTIVE BS, BREATH SOUNDS ARE CLEAR,BILATERALLY. O2 @ 2LITERS WITH NC. PRN. DRESSING ON LEFT FOOT IS CDI.
[2019-02-22 09:14] VITALS: BP 119/57
--- NOTE | 2019-02-22 09:58 | NUR ---
DR THAKUR WOUND CARE INT O VISIT WITH PT WILL SEE PT OUTPATIENT NEXT MONDAY WILL CALL WITH AN APPOINTMENT TIME. CHANGED OVER TO THE WOUND VAC TO [facility] HOME. INSTRUCTIONS GIVEN TO AND PT. VERBALIZED UNDERSTANDING.
[2019-02-22] MEDS ORDERED: LEVAQUIN750 MG PO (11:43)
--- NOTE | 2019-02-22 12:00 | NUR ---
PT HAS BEEN IN THE CHAIR [facility] FOR THE DR TO COME AND MAKE ROUNDS FOR DISCHARGE. CONTINUE TO OSBERVE AND MONITOR.
--- NOTE | 2019-02-22 14:46 | NUR ---
PT RECEIVED DISCHARGE INSTRUCTIONS AND IV SITE DISCONTINEUD CATHETER INTACT. NO REDNESS OR EDEMA. FAMILY IN THE ROOM. SURGICAL SHOE IS INTACT. MEDIUM FITS NICELY. Discharge instructions given. Patient verbalizes understanding of same. Discharged in stable condition via Wheelchair to Home with family. All belongings sent with pt.[facility]. AND WOUND CLINIC INVOLVED IN HIS CARE. GAVE LITERATURE ON THE CELLULITIS .
== END 2019-02-22 14:42 | disposition home health service (06) | DRG 857 ==
LOC: ED 08:54 → ED-I 11:10 → ED 11:29 → MS2 11:30
PROVIDERS: Family Medicine; Nurse Practitioner Family; ADMIT Internal Medicine; ATTEND Internal Medicine
PROC: 0JBR0ZZ Excision of Left Foot Subcutaneous Tissue and Fascia, Open Approach (ICD-10-PCS; principal; 2019-02-19)
DX: T81.41XA Infection following a procedure, superficial incisional surgical site, initial encounter (principal); T81.31XA Disruption of external operation (surgical) wound, not elsewhere classified, initial encounter; E11.628 Type 2 diabetes mellitus with other skin complications; L03.032 Cellulitis of left toe; E83.42 Hypomagnesemia; E87.6 Hypokalemia; I10 Essential (primary) hypertension; E11.42 Type 2 diabetes mellitus with diabetic polyneuropathy; E78.5 Hyperlipidemia, unspecified; I25.10 Atherosclerotic heart disease of native coronary artery without angina pectoris; F17.290 Nicotine dependence, other tobacco product, uncomplicated; B96.20 Unspecified Escherichia coli [E. coli] as the cause of diseases classified elsewhere; Y83.8 Other surgical procedures as the cause of abnormal reaction of the patient, or of later complication, without mention of misadventure at the time of the procedure; Z79.84 Long term (current) use of oral hypoglycemic drugs; Z95.1 Presence of aortocoronary bypass graft; Z95.5 Presence of coronary angioplasty implant and graft; Z91.19 Patient's noncompliance with other medical treatment and regimen; Z86.73 Personal history of transient ischemic attack (TIA), and cerebral infarction without residual deficits
CPT/HCPCS: G0378; J1650; J3370; J3475; Q3014

== ENCOUNTER 2019-03-05 11:28 | Inpatient (IN) | payer MEDICARE ==
[~2019-03-05] VITALS: Ht 175.3 cm; Wt 95.3 kg
[~2019-03-05 11:28] MED LIST changes: +LEVAQUIN750 MG PO; +LEVEMIR FL100 UNIT/M SC; +PROTONIX40 M2 PO
--- NOTE | 2019-03-05 12:21 | NUR ---
TRIAGED AND RETURNED TO LOBBY IN CARE OF IN NO DISTRESS
--- NOTE | 2019-03-05 13:00 | NUR ---
PT IS RESTING ON STRETCHER. PT ADVISED OF BUSY ER AND WAIT TIME. PT AND VERBALIZED UNDERSTANDING. CALL LIGHT WITHIN REACH
--- NOTE | 2019-03-05 14:00 | NUR ---
PT ADVISED OF CONTINUED WAIT TIME. PT AND DEMONSTRATED UNDERSTANDING. CALL LIGHT WITHIN REACH
[2019-03-05 14:25] LABS: HEMATOCRIT 30.6 % (39.0-50.0); HEMOGLOBIN 10.3 g/dl (14.0-18.0); IMMATURE GRANULOCYTES 0.6 % (0.0-5.0); MEAN CELL VOLUME 92.7 fL CALC (80.0-100.0); MEAN CORPUSCULAR HGB 31.2 pG CALC (26.0-32.0); MEAN CORPUSCULAR HGB CONC 33.7 g/L CALC (32.0-36.0); NEUT# 5.08 thou/uL (1.82-7.42); RED BLOOD COUNT 3.3 mill/uL (4.70-6.10); RED CELL DISTRI WIDTH 13.1 % (11.5-15.5)
[2019-03-05 14:42] LABS: PROTHROMBIN TIME 10.8 SECONDS (9.0-12.5)
[2019-03-05 14:51] LABS: ALBUMIN 3.6 g/dL (3.2-5.0); BILIRUBIN, TOTAL 0.6 mg/dL (0.0-1.4)
[2019-03-05 14:52] LABS: CREATININE 3.8 mg/dL (0.7-1.3); POTASSIUM 4.9 mmol/l (3.5-5.1)
--- NOTE | 2019-03-05 15:20 | NUR ---
PT PRESENTS WITH SOB THAT STARTED TWO DAYS AGO. PT STATES GAINING 25 LBS IN TWO DAYS AND THAT HE HAS INCREASED IN GIRTH AROUND THE ABDOMEN AND SWELLING IN THE LOWER LEGS BILATERALLY. PT DENIES ANY PAIN. RIGHT LUNG SOUNDS CLEAR AND LEFT UPPER LOBE SOUNDS CLEAR WELL. THE LEFT LOWER LOBES HAS CRACKLES. PT CAP REFILL IS BRISK. PT ALSO STATES BEING ABLE TO URINATE REGULARLY. WILL CONTINUE TO MONITOR.
--- NOTE | 2019-03-05 16:19 | NUR ---
MD IN ROOM DISCUSSING PLAN OF CARE AND DX. PT DENIES ANY NEEDS AT THIS TIME
[2019-03-05 16:35] LABS: URINE BILIRUBIN - DIPSTICK NEGATIVE (NEGATIVE); URINE BLOOD DIPSTICK LARGE (NEGATIVE); URINE COLOR YELLOW; URINE GLUCOSE - DIPSTICK NEGATIVE (NEGATIVE); URINE KETONE NEGATIVE (NEGATIVE); URINE LEUK ESTERASE TRACE (NEGATIVE); URINE NITRITE - DIPSTICK NEGATIVE (Negative); URINE PH 5.5 (4.5-8.0); URINE PROTEIN - DIPSTICK 100 mg/dL (NEG-TRACE); URINE SPECIFIC GRAVITY >=1.030; URINE UROBILINOGEN - DIPSTICK 0.2 E.U./dL (0.2)
[2019-03-05 16:39] LABS: URINE WBC 0-2 WBC/hpf (0-5)
--- NOTE | 2019-03-05 17:11 | NUR ---
PT STATES THAT HIS WOUND VAC MACHINE IS DISFUNCTIONING. THE MONITOR SHOWS THAT THERE IS A LEAK. THE OUTER DRESSING WAS UNWRAPPED. IT LOOKS LIKE THE VAC LIFTED UP A BIT, OUT OF MY SCOPE OF PRACTICE, SO PT NOTIFIED AND SUGGESTIONS DISCUSSED ON CALLING WOUND CLINIC. PT VERBALIED UNDERSTANDING.
--- NOTE | 2019-03-05 18:25 | NUR ---
PT NOTIFIED OF PLAN OF CARE, AND THAT A STEPHENSON CATHETER WOULD HAVE TO BE DONE. EDU WAS PROVIDED AND PT VERBALIZED UNDERSTANDING. PT IS NOT TO COMFORTABLE ABOUT THE NEWS BUT STATES "I KNOW IT HAS TO BE DONE"
--- NOTE | 2019-03-05 19:09 | NUR ---
BP DOES NOT SEEM TO LOWER EVEN AFTER STEPHENSON INSERTION AND FLUID ELIMINATION. NOTIFIED BP 201/95
--- NOTE | 2019-03-05 19:58 | NUR ---
PT TRANSPORTED OUT OF ER VIA STRETCHER STABLE AND IN NO DISTRESS TO MED SURG. CARE ASSUMED TO [facility]
--- NOTE | 2019-03-05 20:06 | NUR ---
DAVON MOLINA TO [facility]
--- NOTE | 2019-03-05 20:21 | NUR ---
PT ARIVED TO THE FLOOR ACCOMPANIED BY ED STAFF. PT ALERT AND ORIENTED, FAMILY AT BEDSIDE. VS OBTAINED AND ASSESSMENT COMPLETED. RESPIRATIONS LABORED, LUNGS SOUND DIMINISHED. PEDAL PULSE WEAK. PT REPORTS HAVING PAIN IN HIS PENIS ONLY WHEN REPOSITIONING. STEPHENSON DRAINING BLOOD TINGED URINE TO GRAVITY, MD AWARE. TELE IN PLACE. PT ORIENTED TO ROOM AND CALL JUAREZ SYSTEM. SAFETY PRECAUTIONS IN PLACE. WILL CONTINUE TO MONITOR.
--- NOTE | 2019-03-05 23:45 | NUR ---
PT RESTING IN BED. RESPIRATIONS LABORED. STEPHENSON DRAINING TO GRAVITY. SAFETY PRECAUTIONS IN PLACE. WILL CONTINUE TO MONITOR.
[2019-03-06] VITALS (8 sets, daily range): BP systolic 141–175; BP diastolic 76–89
--- NOTE | 2019-03-06 04:00 | NUR ---
PT RESTING IN BED. RESPIRATIONS LABORED. STEPHENSON DRAINING TO GRAVITY. TELE IN PLACE. PT PROVIDED WITH ICE CHIPS PER REQUEST. SAFETY PRECAUTIONS IN PLACE. WILL CONTINUE TO MONITOR.
[2019-03-06 05:59] LABS: HEMATOCRIT 34.5 % (39.0-50.0); HEMOGLOBIN 11.5 g/dl (14.0-18.0); IMMATURE GRANULOCYTES 0.7 % (0.0-5.0); MEAN CORPUSCULAR HGB CONC 33.3 g/L CALC (32.0-36.0); NEUT# 8.47 thou/uL (1.82-7.42); RED BLOOD COUNT 3.71 mill/uL (4.70-6.10); RED CELL DISTRI WIDTH 13.2 % (11.5-15.5)
[2019-03-06 06:17] LABS: CREATININE 3.3 mg/dL (0.7-1.3)
[2019-03-06 06:22] LABS: POTASSIUM 5.9 mmol/l (3.5-5.1)
--- NOTE | 2019-03-06 07:50 | NUR ---
PT RESTING IN BED, NO SIGNS OF DISTRESS NOTED, RESP EVEN AND LABORED. PT ALERT AND ORIENTED X3, 02 SAT 96%. [facility], DRESSING CDI. STEPHENSON DRAINING BLOODY DRAINAGE, NO CLOTS NOTED AT THIS TIME. DISCUSSED POC, ENCOURAGED PT TO SIT IN CHAIR AT BEDSIDE, PT AGREED. ASSISTED PT TO CHAIR, CALL LIGHT IN REACH,CONTINUE TO MONITOR.
--- NOTE | 2019-03-06 09:05 | NUR ---
INFORMED BUTTER PRINTER OF BLOODY URINE, AND SOB ON EXERTION. ORDERS FOR STAT CXR AND BNP. PT VERBALIZED UNDERSTANDING. CALL LIGHT IN REACH,CONTINUE TO MONITOR.
--- NOTE | 2019-03-06 09:52 | NUR ---
RADIOLOGY AT BEDSIDE FOR CXR
--- NOTE | 2019-03-06 10:30 | NUR ---
PT CALLED REQUESTING TO RETURN TO BED, ASSISTED PT TO BED, STEPHENSON REMAINS; DRAINAGE AND RED BLOODY. WOUND VAC CONTINUES, DRESSING CDI. CALL LIGHT IN REACH,CONTINUE TO MONITOR.
--- NOTE | 2019-03-06 12:50 | NUR ---
PT GIVEN KAYEXALATE, BECAME NAUSEOUS. IV ZOFRAN ORDERED AND GIVEN. PT ON BSC HAVING A BM, WILL SEND TO LAB FOR TESTING.
--- NOTE | 2019-03-06 13:40 | NUR ---
BP RECHECKED AFTER LASIX GIVEN 175/82 IV APRESOLINE GIVEN BY RN.
--- NOTE | 2019-03-06 14:00 | NUR ---
INFORMED DIRECTOR MBA OF 150CC OF URINE OUT AFTER 40MG IV LASIX, DIRECTOR MBA TO ORDER MORE LASIX, DISCUSSED WITH PT AND , BOTH AGREE.
--- NOTE | 2019-03-06 14:30 | NUR ---
PT SITTING IN CHAIR AT BEDSIDE, RECHECKED BP. PT APPEARS MUCH BETTER, NO SIGNS OF DISTRESS NOED, RESP EVEN AND UNLABORED. AT BEDSIDE, CALL LIGHT IN REACH,CONTINUE TO MONITOR.
[2019-03-06 14:46] LABS: C. DIFFICILE TOXIN A&B NEGATIVE (NEGATIVE)
--- NOTE | 2019-03-06 16:35 | NUR ---
MD AND SUPERVISOR TRANSFERRING AND BOXING AT BEDSIDE TO DISCUSS POC, SCROTUM EXAMINED, MD TO START NYSTATIN POWDER TO AREA. NOTED AREA SWOLLEN,DRY, AND REDDENED. PT BLADDER SCANNED RESULTS 0, REPORTED RESULT TO MD. CALL LIGHT IN REACH,CONTINUE TO MONITOR.
--- NOTE | 2019-03-06 21:40 | NUR ---
PT RESTING IN BED, ALERT AND ORIENTED. RESPIRATIONS EVEN AND UNLABORED ON O2 @ 2L VIA NC. LUNGS SOUND DIMINISHED. PT DENIES ANY PAIN OR DISCOMFORT AT THIS TIME. PT PROVIDED WITH A BLANKET PER REQUEST. STEPHENSON DRAING TO GRAVITY. SAFETY PRECAUTIONS IN PLACE. WILL CONTINUE TO MONITOR.
[2019-03-07] VITALS (10 sets, daily range): BP systolic 141–171; BP diastolic 74–92
--- NOTE | 2019-03-07 00:20 | NUR ---
PT RESTING IN BED, RESPIRATIONS EVEN AND UNLABORED ON O2 @ 2L VIA NC. NO S/S OF DISTRESS AT THIS TIME. SAFETY PRECAUTIONS IN PLACE. WILL CONTINUE TO MONITOR.
--- NOTE | 2019-03-07 04:01 | NUR ---
PT RESTING IN BED. RESPIRATIONS EVEN AND UNLABORED ON O2 @ 2L VIA NC. STEPHENSON DRAINING TO GRAVITY. WOUND VAC IN PLACE. CALL JUAREZ WITHIN REACH. WILL CONTINUE TO MONITOR.
[2019-03-07 05:18] LABS: HEMATOCRIT 31.1 % (39.0-50.0); HEMOGLOBIN 10.3 g/dl (14.0-18.0); IMMATURE GRANULOCYTES 0.3 % (0.0-5.0); MEAN CELL VOLUME 95.4 fL CALC (80.0-100.0); MEAN CORPUSCULAR HGB 31.6 pG CALC (26.0-32.0); MEAN CORPUSCULAR HGB CONC 33.1 g/L CALC (32.0-36.0); NEUT# 5.06 thou/uL (1.82-7.42); RED BLOOD COUNT 3.26 mill/uL (4.70-6.10); RED CELL DISTRI WIDTH 13.4 % (11.5-15.5)
[2019-03-07 05:51] LABS: ALBUMIN 2.9 g/dL (3.2-5.0); BILIRUBIN, TOTAL 0.6 mg/dL (0.0-1.4); CREATININE 2.9 mg/dL (0.7-1.3); POTASSIUM 4.8 mmol/l (3.5-5.1); TOTAL PROTEIN 5.8 g/dL (6.3-8.2)
--- NOTE | 2019-03-07 07:40 | NUR ---
DR SEXTON AT BEDSIDE, WOUND VAC TO BE CHANGED TOMORROW.
--- NOTE | 2019-03-07 08:05 | NUR ---
PT SITTING IN BED WITH AT BEDSIDE. A&O X3. SHALLOW BREATHING NOTED. DIMINISHED BREATH SOUNDS UPON AUSCULTATION. O2 NC @2L/MIN. STEPHENSON CATHETER IN PLACE DRAINING VIA GRAVITY, [place] RED URINE NOTED. +2 PITTING EDEMA NOTED TO BILATERAL LEGS. NO PAIN AT THIS TIME. DISCUSSED POC. ASSESSMENT COMPLETED AT THIS TIME. CALL LIGHT IN REACH CONTINUE TO MONITOR.
--- NOTE | 2019-03-07 09:34 | NUR ---
IV LASIX 40 MG GIVEN. PT TOLERATED WELL.
--- NOTE | 2019-03-07 10:50 | NUR ---
ORDERS TO TRANSFER PT TO ICU REC FROM [facility]. ABG BLOOD GAS OBTAINED FROM RT. PT TO GO TO ICU ON BIPAP TO HELP THE PT WITH HIS BREATHING. UPDATED PT AND ON POC. PT AND VERBALIZED UNDERSTANDING.
--- NOTE | 2019-03-07 10:51 | NUR ---
350 OUTPUT NOTED IN STEPHENSON CATH. URINE YELLOW AND CLEAR IN APPEARANCE AFTER LASIX ADMINISTRATION
--- NOTE | 2019-03-07 11:25 | NUR ---
RECEIVED PT FROM MED/SURG. RECEIVED REPORT FROM Brady BYRNE LPN. PT ALERT & ORIENTED. SKIN WARM AND DRY. COLOR PINK. NO RESP. DISTRESS NOTED. LEFT FOOT IN SHOE WITH WOUND VAC. NO COMPLAINTS VOICED. PT HERE TO HAVE BI-PAP TO ASSIST WITH PT'S BREATHING. STEPHENSON EMPTIED 650 CC YELLOW URINE. AT BEDSIDE. WILL CONTINUE TO MONITOR. CALL LIGHT WITHIN REACH.
--- NOTE | 2019-03-07 11:30 | NUR ---
PT TRANSFERRED TO ICU. PT STABLIZED AND REPORT GIVEN TO M.GOODMAN JURADO.
--- NOTE | 2019-03-07 12:30 | NUR ---
FIRE TECHNICIAN AT BEDSIDE.
--- NOTE | 2019-03-07 14:00 | NUR ---
PT RESTING QUIETLY WITH BI-PAP IN PLACE. NO RESP DISTRESS NOTED. NO COMPLAINTS VOICED. WILL CONTINUE TO MONITOR. CALL LIGHT REMAINS WITHIN REACH.
--- NOTE | 2019-03-07 16:00 | NUR ---
PT CONTINUES TO REST WITH EYES CLOSED WITH BI-PAP. NO RESP. DISTRESS NOTED. REMAINS AT BEDSIDE. WILL CONTINUE TO MONITOR CONDITION. CALL LIGHT REMAINS WITHIN REACH.
--- NOTE | 2019-03-07 16:25 | NUR ---
DR. STEARNS IN TO SEE PATIENT.
--- NOTE | 2019-03-07 16:55 | NUR ---
BIPAP STANDBY. PLACED ON 3L NC.
--- NOTE | 2019-03-07 16:55 | NUR ---
RT IN TO CHANGE FROM BI-PAP TO 02 AT 2 LITERS VIA NC. PT WANTS TO EAT DINNER.
--- NOTE | 2019-03-07 17:00 | NUR ---
PERINEAL CARE PROVIDE. PENIS AND SCROTUM WITH SWELLING NOTED. NYSTATIN APPLIED.
--- NOTE | 2019-03-07 18:28 | NUR ---
PT CONTINUE TO REST IN BED QUIETLY. TOLERATING 02 AT 2 LITERS VIA N/C. AT BEDSIDE. NO RESP. DISTRESS NOTED. NO COMPLAINTS VOICED. WILL CONTINUE TO MONITOR. CALL LIGHT WITHIN REACH.
--- NOTE | 2019-03-07 19:16 | NUR ---
REPORT RECEIVED FROM [facility]. PT RESTING IN BED SEMI FOWLERS; ALERT AND ORIENTED X 4. DENIES PAIN. C/O SOME SOB WITH REST; RESPIRATIONS ARE EVEN AND UNLABORED ON OXYGEN 3L VIA NC; RT AT BEDSIDE FOR EVAL; PT STATES HE WANTS TO GO BACK ON BIPAP AFTER PM MEDICATIONS. LUNGS ARE CLEAR WITH SOME WHEEZING; ABDOMEN DISTENDED AND FIRM; 4+ PITTING EDEMA TO BLE; WOUND VAC IN PLACE TO LEFT GREAT TOE WITH DRESSING AND AYE WRAP; PEDAL PULSE PALPABLE THROUGH DRESSING; TOES ARE EXPOSED AND CAP REFILL IS <3 SEC; GOOD CIRCULATION. DR. SEXTON TO COME TOMORROW TO CHANGE WOUND VAC PER REPORT AND PATIENT. PLAN OF CARE REVIEWED. PT ENCOURAGED TO VERBALIZE CONCERNS. STATES UNDERSTANDING. SAFETY MEASURES IN PLACE. CALL LIGHT WITHIN REACH.
--- NOTE | 2019-03-07 20:35 | NUR ---
PM MEDICATIONS TAKEN WITHOUT DIFFICULTY; CHELSI/STEPHENSON CARE PROVIDED AND NYSTATIN POWDER APPLIED.
--- NOTE | 2019-03-07 21:07 | NUR ---
PT NOW ON BIPAP.
--- NOTE | 2019-03-07 23:44 | NUR ---
BIPAP OFF MOMENTARILY FOR DRINK OF WATER; CONTINUES TO DENY PAIN. NO REQUESTS OR CONCERNS AT THIS TIME. IV FLUIDS INFUSING AT KVO AND IV SITE APPEARS HEATLHY. CALL LIGHT WITHIN REACH.
[2019-03-08] VITALS (19 sets, daily range): BP systolic 147–174; BP diastolic 74–90
--- NOTE | 2019-03-08 02:45 | NUR ---
PT USED CALL LIGHT TO REQUEST DRINK OF WATER; DRANK ONE CUP. 1000 ML OF URINE EMPTIED FROM STEPHENSON; URINE NOW YELLOW. BIPAP ON. NO ACUTE CHANGES IN PT CONDITION. PT HAS REMAINED HYPERTENSIVE THROUGHOUT THE NIGHT; METOPROLOL GIVEN AT HS. WILL CONTINUE TO MONITOR. CALL LIGHT WITHIN REACH.
--- NOTE | 2019-03-08 03:14 | NUR ---
APRESOLINE GIVEN FOR SBP SUSTAINED GREATER THAN 160. BP CURRENTLY 172/89 HR 73. PT DENIES PAIN CURRENTLY. RESPOSITIONING SELF IN BED. WOUND VAC REMAINS INTACT.
--- NOTE | 2019-03-08 04:18 | NUR ---
PT REQUESTED TO REMOVE BIPAP SO HE COULD SLEEP BETTER; AFTER 30 MIN PT FELT SOB AND ASKED TO REAPPLY IT. NOW BACK ON BIPAP. BLOOD PRESSURE HAS IMPROVED; NOW 158/79.
--- NOTE | 2019-03-08 04:59 | NUR ---
LAB AT BEDSIDE.
[2019-03-08 05:35] LABS: HEMATOCRIT 31.7 % (39.0-50.0); HEMOGLOBIN 10.4 g/dl (14.0-18.0); MEAN CELL VOLUME 94.3 fL CALC (80.0-100.0); MEAN CORPUSCULAR HGB CONC 32.8 g/L CALC (32.0-36.0); RED BLOOD COUNT 3.36 mill/uL (4.70-6.10); RED CELL DISTRI WIDTH 13.2 % (11.5-15.5)
[2019-03-08 06:00] LABS: CREATININE 2.9 mg/dL (0.7-1.3); MAGNESIUM 1.5 mg/dL (1.6-2.3); POTASSIUM 4.1 mmol/l (3.5-5.1)
--- NOTE | 2019-03-08 06:22 | NUR ---
CALLED FOR UPDATE.
--- NOTE | 2019-03-08 06:27 | NUR ---
DR. WARREN CONSULT CALLED TO NEPHROLOGY ANSWERING SERVICE; SPOKE WITH
--- NOTE | 2019-03-08 07:45 | NUR ---
DR SEXTON @BEDSIDE- COMPLETED WOUND CARE, WOUND VAC APPLIED; SHOULD BE CHANGED ON MONDAY BY HOME HEALTH, NO SURGICAL INTERVENTION NEEDED.
--- NOTE | 2019-03-08 08:26 | NUR ---
DR STEARNS @BEDSIDE WITH PT/. DISCUSSING POC, ASSESSING PT
--- NOTE | 2019-03-08 09:33 | NUR ---
radiology at bedside for cxr
--- NOTE | 2019-03-08 10:48 | NUR ---
PT PLACED BACK ON BIPAP AFTER RETAIL TEAM LEADER LEFT THIS AM, UPON PT REQUEST. REMAINS AT BEDSIDE. PT RESTING IN BED. NO S/S OF DISTRESS. WILL CONTINUE TO MONITOR.
--- NOTE | 2019-03-08 11:52 | NUR ---
PT SLEEPING IN BED, WEARING BIPAP. VSS. WILL CONTINUE TO MONITOR.
--- NOTE | 2019-03-08 15:42 | NUR ---
UPON ENTERING ROOM TO HANG ABX, THIS RN NOTICED BLOOD ON PTS GOWN. UPON FURTHER INSPECTION, NOTICED IV PULLED FROM PTS ARM. OLD IV FOUND- TIP INTACT. NEW IV PLACED- #20 RW. PT REFUSED TO CHANGE TO NEW GOWN, DENIES WET SHEETS. GOWN LEFT IN ROOM IN CASE CAN CONVINCE PT TO CHANGE GOWNS. REMOVING PTS BIPAP SPORATICALLY FOR SIPS OF WATER.
--- NOTE | 2019-03-08 15:58 | NUR ---
ACCKASEY 245, ESTABLISHED 2ND IV SITE.
--- NOTE | 2019-03-08 18:04 | NUR ---
PT REFUSING DINNER, REQUESTING TO SLEEP. DINNER LEFT ON BEDSIDE TABLE. PT REPOSITIONING SELF. KNOWS HOW TO REMOVE BIPAP MASK TO GET A DRINK & REPLACE MASK. VSS. CALLBELL W/IN REACH. WILL CONTINUE TO MONITOR.
--- NOTE | 2019-03-08 19:30 | NUR ---
REPORT GIVEN BY SHERIE JURADO. PATIENT RESTING IN BED WATCHING TV. RESP EVEN AND UNLABORED, BIPAP ON PATIENT. EDEMA PRESENT BLE. STEPHENSON DRAINING TO GRAVITY, ORANGE COLORED URINE. WOUND VAC PRESENT ON L FOOT, DRESSING CDI. PLAN OF CARE REVIEWED. PATIENT INFORMED TO CALL WITH ANY QUESTIONS OR CONCERNS. FALL PRECATUIONS IN PLACE. ASSESMENT COMPLETED AT THIS TIME.
--- NOTE | 2019-03-08 20:34 | NUR ---
CALLED, UPDATED HER ON PATIENTS CONDITION. PATIENTS CODE PROVIDED BEFORE INFORMATION WAS GIVEN.
--- NOTE | 2019-03-08 22:50 | NUR ---
PATIENT RESTING IN BED WITH EYES CLOSED. RESP EVEN AND UNLABORED. BIPAP IN PLACE. NO S/S OF DISTRESS NOTED.
--- NOTE | 2019-03-08 23:41 | NUR ---
PATIENT RESTING WITHE EYES CLOSED. BI PAP IN PLACE. RESP EVEN AND UNLABORED. NO S/S OF DISTRESS NOTED.
[2019-03-09] VITALS (16 sets, daily range): BP systolic 105–180; BP diastolic 56–105
--- NOTE | 2019-03-09 02:11 | NUR ---
PATIENT RESTING WITH EYES CLOSED. BIPAP IN PLACE. RESP EVEN AND UNLABORED. NO S/S OF DISTRESS NOTED.
--- NOTE | 2019-03-09 05:11 | NUR ---
PATIENT AWAKE AND WATCHING TV. PATIENT STATES THE BIPAP IS MAKING HIS MOUTH DRY. I GAVE HIM MOUTH SWABS TO USE TO MOISTEN HIS MOUTH. RESP EVEN AND UNLABORED. NO S/S OF DISTRESS NOTED.
--- NOTE | 2019-03-09 05:36 | NUR ---
UPDATED ON PATIENTS CONDITION.
[2019-03-09 06:33] LABS: CREATININE 2.9 mg/dL (0.7-1.3); MAGNESIUM 1.4 mg/dL (1.6-2.3); POTASSIUM 3.7 mmol/l (3.5-5.1)
--- NOTE | 2019-03-09 07:00 | NUR ---
REPORT RECEIVED FROM KATHY. ON BIPAP IN BED TESTING NO SIGNS OF DISRTESS. STEPHENSON PATENT, YELLOW URINE. A& O X3
--- NOTE | 2019-03-09 13:00 | NUR ---
IN BED RESTING. BIPAP DEPENDANT. MASK REMOVED AND REPLACED WITH NC AT BREAKFAST AND LUNCH. PT REQUESTED RETURN OF MASK IN LESS THAN 30MIN EACH TIME. REST PEACEFULLY WITH BIPAP IN USE
--- NOTE | 2019-03-09 19:15 | NUR ---
patient lays with hob 30 degrees. male visitor at bedside. on bipap while assessing. alert and orieneted x4. head tot oe nursing assessment performed. l-wr 22 g iv intact, ns infusing at 30 ml/hr. sweeney catheter intact. temp 100.1, pt has been having bipap mask that starts from his forehead, no reports of chills, will continue to monitor temp. poc for tonight discussed. l-foot wound vac intact. bilat legs edemetous. sr on telemetry. visitor brought in a shake and fruit, pt's requests bipap off to be able to eat, hob elevated although pt does not want it straight up because it bothers him. pt placed on nc 3 l/min, sats 91%-92%. poc for tonight discussed. call light within reach.
--- NOTE | 2019-03-09 19:22 | NUR ---
rt notified bipap taken off and placed on 3l/min due to patient eating.
--- NOTE | 2019-03-09 19:38 | NUR ---
bipap placed back on per pt request.
--- NOTE | 2019-03-09 19:51 | NUR ---
PT.'S , BRIAN, CALLED AND WANTED TO KNOW IF DOCTOR WILL BE MAKING ROUNDS TOMORROW, INOTIFIED HER HE WILL BE COMING IN TOMORROW. SHE ALSO WANTED TO KNOW IF IF PATIENT CAN HAVE ENSURE BECAUSE OF HIS LOW APPETITE AND WANTS PT CONSULTED. REPORTS PATIENT HAS NOT GOTTEN UP AND HAS LOW ENERGY AND SHE WOULD LIKE HIM WASHED UP. I NOTIFIED HER THAT I WILL GLADLY PROVIDE BATHE TO PATIENT IF HE IS UP TO IT TONIGHT. I WILL ALSO NOTIFY AM SHIFT IF PATIENT IS COMFORTABLE HE CAN GET UP TO RECLINER DURING THE DAY.
--- NOTE | 2019-03-09 20:56 | NUR ---
PATIENT ABLE TOT TOLERATE HIS BEDTIME MEDICATIONS, VISITOR HAS LEFT. PT AGREES TO GET A BED BATHE.
--- NOTE | 2019-03-09 21:35 | NUR ---
PROVIDED BED BATHE TO PATIENT, HE WAS ENCOURAGED TO PARTICIPATE. LINENS CHANGED. STEPHENSON CARE PROVIDED, NYASTATIN TOPICAL PROBIDED TO GROIN AREA. ALSO OFFERED HIM TO SIT ON RECLINER FOR A WHILE, HE AGREED AT FIRST AND THAN REPORTED HE WAS "TIRED TODAY," AND HE WILL TRY TOMORROW IN THE MORNING FOR BREAKFAST. BIPA HAS REMAINED ON AND HE SATS 96%. HEELS ELEVATED, LAYED ON RIGHT SIDE.
--- NOTE | 2019-03-09 23:23 | NUR ---
PT LAYS WITH HOB ABOUT 30 DEGREES, BLANKET PROVIDED PER REQUEST. BIPAP REMAINS ON. NO ACUTE DISTRESS SHOWN. CALL LIGHT WITHIN REACH.
[2019-03-10] VITALS (12 sets, daily range): BP systolic 105–173; BP diastolic 73–96
--- NOTE | 2019-03-10 02:26 | NUR ---
PT LAYS WITH HOB ABOUT 30 DEGREES, HAS TV ON. RESTS WITH YES CLOSED, REMIANS ON BIPAP. NO ACUTE DISTRESS SHOWN. CALL LIGHT WITHIN REACH.
--- NOTE | 2019-03-10 04:00 | NUR ---
PT IS AWAKE, WATCHES TV. ON BIPAP, NO ACUTE DISTRESS SHOWN. CALL LIGHT WITHIN REACH.
--- NOTE | 2019-03-10 05:41 | NUR ---
PATIENT WEIGHED ON STANDING SCALE, WEIGHT 229 LBS. PATIENT ALSO ENCOURAGED TO SIT ON RECLINER, HE AGREED. NOW SITTING ON RECLINER, BIPAP ON. FEET ELEVATED AND PILLOW UNDER FEET. NO ACUTE DISTRESS SHOWN. PT DRINKS WATER. CALL LIGHT WITHIN REACH.
[2019-03-10 05:43] LABS: CREATININE 2.9 mg/dL (0.7-1.3); MAGNESIUM 1.7 mg/dL (1.6-2.3); POTASSIUM 3.6 mmol/l (3.5-5.1)
--- NOTE | 2019-03-10 07:39 | NUR ---
PT C/O CATH STEPHENSON "BOTHERING HIM". STEPHENSON FLUSHED WITH SALINE SURINGE x3. PT NOW STATES "IT FEELS BETTER". NOTICED SEDIMENT IN STEPHENSON. STEPHENSON DRAINING TO GRAVITY. @BEDSIDE.
--- NOTE | 2019-03-10 07:45 | NUR ---
NOTIFIED OF NEED OF ABG
--- NOTE | 2019-03-10 08:22 | NUR ---
@BEDSIDE C/O PTS POOR APPETITE. PT SITTING UP IN RECLINER. WILL DISCUSS WITH .
--- NOTE | 2019-03-10 08:27 | NUR ---
DR STEARNS @BEDSIDE, ASSESSING PT, DISCUSSING POC WITH DAUGHTER.
--- NOTE | 2019-03-10 08:55 | NUR ---
NOTIFIED RT OF G
--- NOTE | 2019-03-10 08:57 | NUR ---
DR STEARNS @BEDSIDE WITH PT & , DISCUSSING POC & ASSESSING.
--- NOTE | 2019-03-10 09:05 | NUR ---
PT ASSISTED UP TO BSC FOR POSSIBLE BM
--- NOTE | 2019-03-10 09:17 | NUR ---
RT @BEDSIDE FOR MONCHO
--- NOTE | 2019-03-10 09:39 | NUR ---
PER MD & RT AFTER ABG RESULTS, PT PLACED ON 2 NC DURING THE DAY, PT MAY USE BIPAP AT NIGHT
--- NOTE | 2019-03-10 10:08 | NUR ---
CALLED THIS RN TO ROOM PT WAS "HAVING A PANIC ATTACK". UPON ENTERING ROOM, PT HAD LABORED BREATHING, 87% ON NC. NOTIFIED DR STEARNS WHO AGREED TO PUT PT BACK ON BIPAP- PER PT REQUEST.
--- NOTE | 2019-03-10 12:03 | NUR ---
, BROTHER, & SISTER @BEDSIDE. PT WANTS TO EAT FRUIT SIBLINGS BROUGHT FROM [employer]. EDUCATED FAMILY ON PTS SPECIAL DIET.
--- NOTE | 2019-03-10 14:20 | NUR ---
PT AWARE NUTRITION CONSULT PLACED FOR POOR APPETITE. BROTHER @BEDSIDE STATES PT HAS ALWAYS BEEN A PICKY EATER.
--- NOTE | 2019-03-10 16:56 | NUR ---
@BEDSIDE ENCOURAGING PT TO CLOSE HIS EYES & RELAX.
--- NOTE | 2019-03-10 18:16 | NUR ---
PT ASSISTED BACK TO BED, USING UNSTEADY GAIT. PT REMAINS ON BIPAP.
--- NOTE | 2019-03-10 19:25 | NUR ---
PT LAYS SUPINE, BIPAP ON. ALERT, AWAKE. ORIENTED X4. BIPAP 02 SET TO 30%, NO SOB NOTED. NO RESPIRATORY DISTRESS NOTED. STEPHENSON CATHETER INTACT. L-FOOT WOUND VAC INTACT. RFA IV INTACT. BROTHER AT BEDSIDE. SR ON TELEMETRY. HEAD TO TOE NURSING ASSESSMENT PERFORMED. CALL LIGHT WITHIN REACH.
--- NOTE | 2019-03-10 20:00 | NUR ---
PT PASSED GAS AND HAD A XSM INCONTINENT BM. PERICARE PROVIDED. GOWN CHANGED. PADS CHANGED. NOW LAYS WITH HOB 30 DEGREES. BROTHER AT BEDSIDE. CALL LIGHT WITHIN REACH. BIPAP ON.
--- NOTE | 2019-03-10 20:10 | NUR ---
PATIENT LAYS SUPINE, WHILE NURSE NEIDA HAD PROVIDED A BEDPPAN, PT WAS CLEANED UP AND CLEAN BRIEF APPLIED. PT IS AWAKE, ALERT AND ORIENETED X2. IS HARD OF HEARING. FOLLOWS DIRECTIONS, ANSWERS QUESTIONS. HEAD TO TOE NURSING ASSESSMENT PERFORMED. ON 5L/MIN NC, DESATS TO 85% WITH EXERTION. RAC AND RFA IV'S INTACT, CARDIZEM DRIP INFUSING. NS INFUSING PROPERLY. AFIB WITH HEART RATE 80'S-90'S. CALL LIGHT WITHIN REACH.
--- NOTE | 2019-03-10 21:02 | NUR ---
BIPA TAKEN OFF BY NURSE CARRASQUILLO AND PLACED ON NC 2L/MIN DUE TO PATIENT WILL BE EATING HIS BEDTIME SNACK.
--- NOTE | 2019-03-10 21:40 | NUR ---
PATIENT ABLE TO TOLERATE HIS BEDTIME MEDIACTIONS. ON BIPAP. WAS ABLE TO EAT BEDTIME SNACK. CALL LIGHT WITHIN REACH. NO NEEDS OR COMPLAINTS AT THIS TIME.
[2019-03-11] VITALS (14 sets, daily range): BP systolic 136–180; BP diastolic 69–89
--- NOTE | 2019-03-11 00:24 | NUR ---
PATIENT LAYS WITH HOB 30 DEGREES. AWAKENS WITH VERBAL STIMULI. TV ON. CALL LIGHT WITHIN REACH. ON BIPAP. NO ACUTE DISTRESS SHOWN.
--- NOTE | 2019-03-11 02:22 | NUR ---
PT LAYS WITH HOB ABOUT 30 DEGREES, REMAINS ON BIPAP O2 30%. RESTS WITH EYES CLOSED. NO ACUTE DISTRESS SHOWN. CALL LIGHT WITHIN REACH.
[2019-03-11 05:41] LABS: MEAN CELL VOLUME 92.5 fL CALC (80.0-100.0); MEAN CORPUSCULAR HGB 30.8 pG CALC (26.0-32.0); MEAN CORPUSCULAR HGB CONC 33.3 g/L CALC (32.0-36.0); RED BLOOD COUNT 2.92 mill/uL (4.70-6.10); RED CELL DISTRI WIDTH 12.9 % (11.5-15.5)
--- NOTE | 2019-03-11 05:44 | NUR ---
PATIENT ABLE TO STAND UP TO WEIGH ON DIGITAL SCALE. PT SAFELY TRANSFERRED TO RECLINER, FEET ELEVATED AND PILOW PLACED UNDER LEGS. WOUND VAC INTACT. STEPHENSON CATHETER INTACT. REMAINS ON BIPAP. NO ACUTE DISTRESS SHOWN. CALL LIGHT WITHIN REACH.
[2019-03-11 05:52] LABS: CREATININE 2.7 mg/dL (0.7-1.3); MAGNESIUM 1.5 mg/dL (1.6-2.3); POTASSIUM 3.4 mmol/l (3.5-5.1); TOTAL PROTEIN 5.7 g/dL (6.3-8.2)
[2019-03-11 05:55] LABS: BILIRUBIN, TOTAL 0.9 mg/dL (0.0-1.4)
--- NOTE | 2019-03-11 07:45 | NUR ---
PT REMOVED OF BIPAP, ON 2L NC, TO EAT BREAKFAST.
--- NOTE | 2019-03-11 08:24 | NUR ---
DR STEARNS @BEDSIDE WITH PT & FAMILY
--- NOTE | 2019-03-11 08:51 | NUR ---
HOME HEALTH @BEDSIDE FOR WOUND CARE.
--- NOTE | 2019-03-11 09:25 | NUR ---
PORT CXR COMPLETED @BEDSIDE.
--- NOTE | 2019-03-11 10:05 | NUR ---
PHARMACY CALLED TO INVESTIGATE K+ TABS.
--- NOTE | 2019-03-11 12:30 | NUR ---
MARKETING PROFESSOR AWARE OF CONSULT.
--- NOTE | 2019-03-11 13:33 | NUR ---
DR XIONG @BEDSIDE WITH PT/FAMILY FOR CONSULT.
--- NOTE | 2019-03-11 14:05 | NUR ---
STARCH FACTORY LABORER @BEDSIDE WITH FAMILY
--- NOTE | 2019-03-11 16:31 | NUR ---
PT GIVEN MORE ICE FOR COLD WATER.
--- NOTE | 2019-03-11 19:30 | NUR ---
REPORT RECEIVED FROM ADRIEN REHMAN. PT SITTING UP IN BEDSIDE CHAIR WITH MULTIPLE FAMILY AT BEDSIDE; ALERT AND ORIENTED. DENIES PAIN. RESPIRATIONS EVEN AND UNLABORED ON OXYGEN 2L VIA NC. LUNGS ARE DIMINIHSED WITH SOME WHEEZING TO RIGHT ANTERIOR. ABDOMEN D/F; 4+ EDEMA TO BLE; DRESSING TO LEFT FOOT WITH WOUND VAC IN PLACE AT 125 MMHG. IV FLUIDS INFUSING AT KVO WITHOUT DIFFICULTY; IV SITE APPEARS HEALTY. PLAN OF CARE REVIEWED. PT ENCOURAGED TO VERBALIZE CONCERNS. STATES UNDERSTANDING. SAFETY MEASURES IN PLACE. CALL LIGHT WITHIN REACH.
[2019-03-11 19:36] LABS: URINE BILIRUBIN - DIPSTICK NEGATIVE (NEGATIVE); URINE BLOOD DIPSTICK LARGE (NEGATIVE); URINE COLOR YELLOW; URINE GLUCOSE - DIPSTICK NEGATIVE (NEGATIVE); URINE KETONE NEGATIVE (NEGATIVE); URINE LEUK ESTERASE NEGATIVE (NEGATIVE); URINE NITRITE - DIPSTICK NEGATIVE (Negative); URINE PROTEIN - DIPSTICK 100 mg/dL (NEG-TRACE); URINE UROBILINOGEN - DIPSTICK 0.2 E.U./dL (0.2)
[2019-03-11 19:44] LABS: URINE RBC 25-50 RBC/hpf (0-5); URINE WBC 0-2 WBC/hpf (0-5)
--- NOTE | 2019-03-11 19:45 | NUR ---
REPOSITIONED INTO BED SEMI FOWLERS PER REQUESTS AND BIPAP ALSO APPLIED AT THIS TIME. SOME EXERTIONAL SOB NOTED WITH REPOSITIONING.
--- NOTE | 2019-03-11 21:14 | NUR ---
BIPAP REMOVED FOR HS MEDICATIONS AND DIABETIC SNACK. REAPPLIED AFTER. STEPHENSON DRAINING CLOUDY YELLOW URINE WHICH SEEMS WORSE THAN PRIOR OUTPUT; URINE SAMPLE COLLECTED AND SENT TO LAB.
--- NOTE | 2019-03-11 23:20 | NUR ---
BLOOD PRESSURE REMAINS ELEVATED AFTER SCHEDULED HS MEDS; APRESOLINE GIVEN AT THIS TIME. ZOSYN NOW INFUSING. PT REQUESTED SIP OF WATER; BIPAP REMOVED FOR DRINK AND REPLACED.
[2019-03-12] VITALS (22 sets, daily range): BP systolic 110–173; BP diastolic 60–93
--- NOTE | 2019-03-12 00:26 | NUR ---
PT REQUESTED TO COME OFF BIPAP FOR COMFORT. NOW RESTING SEMI FOWLERS WITH 2L OXYGEN VIA NC. WATER PROVIDED. NO OTHER REQUESTS OR CONCERNS AT THIS TIME. CALL LIGHT WITHIN REACH.
--- NOTE | 2019-03-12 01:11 | NUR ---
BACK ON BIPAP PER REQUEST; FIO2 30%.
--- NOTE | 2019-03-12 02:35 | NUR ---
PT ASLEEP AT THIS TIME WITH BIPAP ON AND EYES CLOSED; NO SIGNS OF DISTRESS. RESPIRATIONS EVEN AND UNLABORED. SAFETY MEASURES IN PLACE. CALL LIGHT WITHIN REACH.
[2019-03-12 05:52] LABS: CREATININE 2.7 mg/dL (0.7-1.3); POTASSIUM 2.9 mmol/l (3.5-5.1)
--- NOTE | 2019-03-12 06:30 | NUR ---
PT REPOSITIONED INTO BEDSIDE CHAIR PER REQUEST; ON 2L OXYGEN VIA NC. BED LINENS CHANGED. DECLINES ORAL CARE AT THIS TIME. WATER PROVIDED. PT VERY THANKFUL. SAFETY MEASURES IN PLACE. CALL LIGHT AND BEDSIDE TABLE WITHIN REACH.
[2019-03-12 07:32] LABS: HEMATOCRIT 28.1 % (39.0-50.0); HEMOGLOBIN 9.5 g/dl (14.0-18.0); MEAN CELL VOLUME 91.8 fL CALC (80.0-100.0); MEAN CORPUSCULAR HGB CONC 33.8 g/L CALC (32.0-36.0); RED BLOOD COUNT 3.06 mill/uL (4.70-6.10); RED CELL DISTRI WIDTH 12.8 % (11.5-15.5)
--- NOTE | 2019-03-12 08:15 | NUR ---
PT ASSISTED UP TO BSC FOR BM. CATH STEPHENSON PULLED DURING TRANSFER TO BSC, URINE IS A LIGHT PINK, AWARE, WILL CONTINUE TO OBSERVE
--- NOTE | 2019-03-12 12:51 | NUR ---
CALLED HOME HEALTH R/T SURGICAL BOOT UPON POSSIBLE D/C TOMORROW. PT WEIGHED, RETURNED TO BED. PT ON 2L NC W/OUT S/S OF DISTRESS. PT TALKING/JOKING WITH FAMILY & STAFF.
--- NOTE | 2019-03-12 18:02 | NUR ---
PT GIVEN ANOTHER BOTTLE OF WATER. PT & FAMILY EDUCATED ON ML VS OUNCES AND 1500ml FLUID RESTRICTION.
--- NOTE | 2019-03-12 18:50 | NUR ---
REPORT RECEIVED FROM ADRIEN REHMAN. PT SITTING UP IN BED WITH FAMILY AT BEDSIDE; ALERT AND ORIENTED. DENIES PAIN. RESPIRATIONS EVEN AND UNLABORED ON OXYGEN 2L VIA NC. LUNGS ARE CLEAR; 4+EDEMA TO BLE; GOOD CSM TO LEFT TOES AND SURGICAL DRESSING WITH WOUND VAC IN PLACE CDI; STEPHENSON DRAINING BLOOD TINGED URINE IN LARGE AMOUNTS. PLAN OF CARE REVIEWED. PT ENCOURAGED TO VEBRALIZE CONCERNS. STATES UNDERSTANDING. SAFETY MEASURES IN PLACE. CALL LIGHT WITHIN REACH.
--- NOTE | 2019-03-12 23:33 | NUR ---
RT AT BEDSIDE FOR EVAL; PT WANTS TO WEAT OXYGEN VIA NC WHILE HE SLEEPS AND DECLINES BIPAP. SITTING UP WATCHING TV. 1575 ML OF BLOOD TINGED URINE EMPTIED FROM STEPHENSON.
--- NOTE | 2019-03-12 23:33 | NUR ---
REFUSED BIPAP. SPO2 ON 2L NC 94%.
[2019-03-13] VITALS (16 sets, daily range): BP systolic 147–171; BP diastolic 69–97
--- NOTE | 2019-03-13 01:45 | NUR ---
PT ASLEEP WITH NO SIGNS OF DISTRESS. RESPIRATIONS EVEN AND UNLABORED ON OXYGEN VIA NC. VSS. ZOSYN INFUSED WITHOUT DIFFICULTY; IV SITE APPEARS HEALTHY. SAFETY MEASURES IN PLACE. CALL LIGHT WITHIN REACH.
--- NOTE | 2019-03-13 04:00 | NUR ---
PT RESTING IN BED ON LEFT SIDE WITH EYES CLOSED; AWAKENS SPONTANEOUSLY AND REPORTS THAT HE HAS NOT BEEN TO SLEEP. CONTINUES TO DENY PAIN. PLEASANT AND TALKATIVE. RESPIRATIONS EVEN AND UNLABORED ON OXYGEN 2L. SAFETY MEASURES IN PLACE. CALL LIGHT WITHIN REACH.
--- NOTE | 2019-03-13 05:15 | NUR ---
LAB AT BEDSIDE.
--- NOTE | 2019-03-13 06:00 | NUR ---
PT TRANSPORTED TO RADIOLOGY VIA WHEELCHAIR WITH O2 FOR 2V CXR; TOLERATED WELL. DAILY WEIGHT OBTAINED VIA STANDING SCALE (210.0 LBS). PT NOW SITTING UP IN BEDSIDE CHAIR RECONNECTED TO ALL ATTACHMENTS.
[2019-03-13 06:13] LABS: CREATININE 2.6 mg/dL (0.7-1.3); POTASSIUM 2.8 mmol/l (3.5-5.1)
--- NOTE | 2019-03-13 07:20 | NUR ---
awake in recliner; no apparent distress noted; pt offers no complaints; assessment completed at this time; pt alert and oriented; denies pain; no n/v noted; resp even and unlabored; lungs clear/ diminished throughout; skin color wnl; o2 per nc; network diagnostic support specialist cough noted; pt denies shortness of breath; hr reg; strong right pedal pulse; edema noted to le; modern dancer intact; abd soft with bs present; no bm noted at this time; sweeney to gravity draining well; cath strap intact; #20 patent to rw with ivf infusing without complication; no redness or edema noted at site; dressing cdi to left foot; wound vac intact at cont suction of 125mmhg; no air leak present/ no drainage noted; HH to manage wound care changing/ drsg; pt denies needs; call light within reach; will continue to monitor
--- NOTE | 2019-03-13 07:50 | NUR ---
Dr De Souza present at bedside to assess pt and discuss plan of care
--- NOTE | 2019-03-13 07:56 | NUR ---
BIPAP STANDBY. PT ON 2L NC
--- NOTE | 2019-03-13 08:06 | NUR ---
awake; assist to bsc; no apparent distress noted; pt denies pain or shortness of breath with activity; sweeney to gravity; o2 per nc; call light within reach; will continue to monitor
--- NOTE | 2019-03-13 10:15 | NUR ---
awake in bed; offers no complains; deny needs; spouse at bedside; iv intact and patent; o2 per nc; call light within reach; will continue to monitor
--- NOTE | 2019-03-13 12:05 | NUR ---
awake in bed; no apparent distress noted; pt offers no complaints; spouse at bedside; o2 per nc; no shortness of breath noted; sweeney to gravity; iv intact and patent; no redness or edema noted at site; call light within reach; will continue to monitor
--- NOTE | 2019-03-13 12:31 | NUR ---
Home Health [facility] present at bedside for wound vac change/ management; pic obtained with measurement; wound vac cont with cont therapy at 125mmhg; pt tolerated well; will continue to monitor
--- NOTE | 2019-03-13 14:15 | NUR ---
resting in bed with eyes closed; no apparent distress noted; o2 per nc; sweeney to gravity; wound vac intact and patent; sr pac/pvc on monitor; call light within reach; will continue to monitor
--- NOTE | 2019-03-13 16:30 | NUR ---
awake in bed; offers no complaints; deny needs; o2 per nc; iv intact and patent; no redness or edema noted at site; accucheck 313; wound vac intact and patent; sr pac/pvc on monitor; call light within reach; will continue to monitor
--- NOTE | 2019-03-13 17:59 | NUR ---
awake in bed; offers no complaints; denies pain; iv intact and patent; o2 per nc; sweeney to gravity; wound vac intact to left foot; deny needs; call light within reach;
--- NOTE | 2019-03-13 20:03 | NUR ---
REPORT RECEIVED AND ROUNDS MADE. PT DENIES PAIN AT THIS TIME. DR BRITO GIVEN UPDATE ON LASIX ADMIN. NO FURTHER ORDERS AT THIS TIME.
--- NOTE | 2019-03-13 22:30 | NUR ---
HS MEDS GIVEN ALONG WITH SS INSULIN COVERAGE FOR BS 342. HS SNACK OFFERED.
[2019-03-14] VITALS (8 sets, daily range): BP systolic 135–161; BP diastolic 77–84
--- NOTE | 2019-03-14 | NUR ---
RESTING QUIETLY WITH EYES CLOSED. FACE RELAXED. HR 60S SINUS RHYTHM. WOUND VAC TO L FOOT INTACT.
--- NOTE | 2019-03-14 02:00 | NUR ---
REMAINS IN SINUS OCCASIONAL JENN RATE 58. NO OTHER CHANGES.
--- NOTE | 2019-03-14 04:00 | NUR ---
RESTING QUIETLY WITH EYES CLOSED AND FACE RELAXED. REMAINS STABLE WITHOUT COMPLAINT.
--- NOTE | 2019-03-14 06:00 | NUR ---
PT UP TO RECLINER AND BSC THIS AM. ASSIST WITH AM HYGIENE. REMAINS STABLE DENIES PAIN.
[2019-03-14 06:28] LABS: CREATININE 2.4 mg/dL (0.7-1.3); POTASSIUM 2.9 mmol/l (3.5-5.1)
--- NOTE | 2019-03-14 07:00 | NUR ---
awake in recliner; no apparent distress noted; pt offers no complaints; assessment completed at this time; pt alert and oriented; denies pain; no n/v noted; resp even and unlabored; lungs clear; skin color wnl; o2 per nc at 2L; automobile mechanic motor cough noted; hr reg; strong rt pedal pulses; edema noted to le; sr pac/pvc on monitor; abd soft with bs present; bm noted this am; bsc; sweeney to gravity draining well; cath strap intact; #20 intact to rw patent with ivf infusing without complication; no redness or edema noted at site; dressing cdi to left foot with wound vac intact to med left great toe; wound vac with cont suctioning of 125mmhg; no drainage noted; plan of care/ am meds explained; call light within reach; will continue to monitor
--- NOTE | 2019-03-14 08:20 | NUR ---
awake in recliner; no apparent distress noted; pt offers no complaints; spouse at bedside; sr pac/pvc on monitor; call light within reach; will continue to monitor
[2019-03-14] MEDS ORDERED: LASIX 40 MG TAB40 MG PO (09:03)
[2019-03-14] MEDS ORDERED: KLOR-CON M2020 MEQ PO (09:07)
[2019-03-14] MEDS ORDERED: DOXYCYCL HYC100 MG PO (09:24)
--- NOTE | 2019-03-14 09:32 | NUR ---
sweeney catheter removed; pt tolerated well; urinal provided
--- NOTE | 2019-03-14 09:54 | NUR ---
surgical boot placed to left foot as per orders
--- NOTE | 2019-03-14 10:20 | NUR ---
awake in recliner; no apparent distress noted; pt offers no complaints; sr on monitor; iv intact with mag infusing without difficulty; no redness or edema noted at site; call light within reach; will continue to monitor
--- NOTE | 2019-03-14 11:07 | NUR ---
o2 per nc at 2L; o2 sat 94%; pt converted to ra; o2 sat remains at 94%; will continue to monitor
--- NOTE | 2019-03-14 12:25 | NUR ---
awake in recliner; spouse present at bedside; no apparent distress noted; o2 sat 94% on ra; pt ambulated with surgical boot in place; non weight bearing to left foot/ weight place on left heel; o2 sat 92% while ambulating; pt returned to room in stable condition; o2 sat noted at 95% at rest; minimal shortness of breath noted with exertion; call light within reach; will continue to monitor
--- NOTE | 2019-03-14 12:35 | NUR ---
Dr Moody present at bedside to assess pt and discuss plan of care
--- NOTE | 2019-03-14 12:50 | NUR ---
up to bsc; approx 200cc yellow urine noted mixed with stool; will continue to monitor
--- NOTE | 2019-03-14 13:32 | NUR ---
bladder scanned for 309cc; Dr De Souza notified; no additional orders received
--- NOTE | 2019-03-14 13:51 | NUR ---
pt able to stand and void 225cc clear yellow urine;
--- NOTE | 2019-03-14 14:00 | NUR ---
discharge instructions reviewed with pt via Sasha Pabon RN;
--- NOTE | 2019-03-14 14:13 | NUR ---
Discharge instructions given. Patient verbalizes understanding of same. Discharged in stable condition via Wheelchair to Home with spouse. All belongings sent with pt.
== END 2019-03-14 14:12 | DRG 682 ==
LOC: ED 11:28 → ED-I 16:20 → ED 16:26 → MS2 16:27 → ED-I 16:27 → MS2 18:48 → ICU 03-07 10:50 → MS2 03-07 10:50 → ICU 03-07 11:25
PROVIDERS: Internal Medicine Nephrology; Nurse Practitioner Family; ADMIT Internal Medicine; ATTEND Internal Medicine
PROC: 0T9B70Z Drainage of Bladder with Drainage Device, Via Natural or Artificial Opening (ICD-10-PCS; principal; 2019-03-05)
PROC: 5A09357 Assistance with Respiratory Ventilation, Less than 24 Consecutive Hours, Continuous Positive Airway Pressure (ICD-10-PCS; 2019-03-07)
DX: N17.0 Acute kidney failure with tubular necrosis (principal); I50.31 Acute diastolic (congestive) heart failure; J18.9 Pneumonia, unspecified organism; J96.01 Acute respiratory failure with hypoxia; I13.0 Hypertensive heart and chronic kidney disease with heart failure and stage 1 through stage 4 chronic kidney disease, or unspecified chronic kidney disease; E87.1 Hypo-osmolality and hyponatremia; B37.49 Other urogenital candidiasis; E87.2 Acidosis; E11.22 Type 2 diabetes mellitus with diabetic chronic kidney disease; N18.9 Chronic kidney disease, unspecified; E11.40 Type 2 diabetes mellitus with diabetic neuropathy, unspecified; E78.5 Hyperlipidemia, unspecified; E87.5 Hyperkalemia; E83.42 Hypomagnesemia; I25.10 Atherosclerotic heart disease of native coronary artery without angina pectoris; D63.1 Anemia in chronic kidney disease; E87.6 Hypokalemia; Z79.4 Long term (current) use of insulin; Z95.1 Presence of aortocoronary bypass graft; Z95.5 Presence of coronary angioplasty implant and graft; Z98.890 Other specified postprocedural states; Z79.02 Long term (current) use of antithrombotics/antiplatelets
CPT/HCPCS: G0378; J3475; P9047

== ENCOUNTER 2020-03-03 11:49 | Emergency (ER) | payer MEDICARE ==
[~2020-03-03] VITALS: Ht 175.3 cm; Wt 93.2 kg
[~2020-03-03 11:49] MED LIST changes: +DOXYCYCL HYC100 MG PO; +KLOR-CON M2020 MEQ PO; +LASIX 40 MG TAB40 MG PO
[2020-03-03 12:31] LABS: IMMATURE GRANULOCYTES 0.3 % (0.0-5.0); MEAN CELL VOLUME 88.8 fL CALC (80.0-100.0); MEAN CORPUSCULAR HGB 30.5 pG CALC (26.0-32.0); MEAN CORPUSCULAR HGB CONC 34.3 g/dL CAL (32.0-36.0); NEUT# 4.76 thou/uL (1.82-7.42); RED BLOOD COUNT 3.94 mill/uL (4.70-6.10); RED CELL DISTRI WIDTH 12.8 % (11.5-15.5)
[2020-03-03] MEDS ORDERED: ASPIRIN325 MG PO (12:38)
[2020-03-03 12:50] LABS: ALBUMIN 3.9 g/dL (3.2-5.0); ANION GAP 15 (6-22 (CALC)); BUN 19 mg/dL (8-23); BUN/CREATININE RATIO 15 (12-20 (CALC)); CARBON DIOXIDE 21 mmol/l (22-30); CHLORIDE 100 mmol/l (95-108); CREATININE 1.3 mg/dL (0.7-1.3); GFR 55 ML/MIN (>=60 (CALC)); GFR FOR AFR.AMER. > 60 ML/MIN (>=60 (CALC)); POTASSIUM 3.9 mmol/l (3.5-5.1); SODIUM 132 mmol/l (137-146); TOTAL PROTEIN 7.4 g/dL (6.3-8.2)
[2020-03-03 12:54] LABS: ALKALINE PHOSPHATASE 333 u/l (38-126); BILIRUBIN, TOTAL 1.3 mg/dL (0.0-1.4); SGOT/AST 76 u/l (19-48)
[2020-03-03 13:32] LABS: LIPASE 3646 u/l (23-300)
[2020-03-03] MEDS ORDERED: AMOXICILLIN875 MG PO (16:20)
[2020-03-03] MEDS ORDERED: ZITHROMAX500 MG PO (16:20)
[2020-03-03 16:37] VITALS: BP 148/67
== END 2020-03-03 16:40 | disposition home or self-care (01) ==
LOC: ED 11:49
PROVIDERS: Family Medicine
DX: U07.1 COVID-19 (principal); J12.89 Other viral pneumonia; K80.20 Calculus of gallbladder without cholecystitis without obstruction; E11.65 Type 2 diabetes mellitus with hyperglycemia; I10 Essential (primary) hypertension; F17.290 Nicotine dependence, other tobacco product, uncomplicated; Z79.4 Long term (current) use of insulin
CPT/HCPCS: Q9967

== ENCOUNTER 2020-03-05 07:36 | Emergency (ER) | payer MEDICARE ==
[~2020-03-05] VITALS: Ht 175.3 cm; Wt 95.0 kg
[~2020-03-05 07:36] MED LIST changes: +AMOXICILLIN875 MG PO; +ASPIRIN325 MG PO; +ZITHROMAX500 MG PO
[2020-03-05 08:35] LABS: HEMATOCRIT 33.2 % (39.0-50.0); HEMOGLOBIN 11.3 g/dl (14.0-18.0); IMMATURE GRANULOCYTES 0.4 % (0.0-5.0); MEAN CELL VOLUME 89.5 fL CALC (80.0-100.0); MEAN CORPUSCULAR HGB 30.5 pG CALC (26.0-32.0); NEUT# 5.56 thou/uL (1.82-7.42); RED BLOOD COUNT 3.71 mill/uL (4.70-6.10); RED CELL DISTRI WIDTH 12.9 % (11.5-15.5)
[2020-03-05 08:49] LABS: ALBUMIN 3.9 g/dL (3.2-5.0); ALKALINE PHOSPHATASE 267 u/l (38-126); AMYLASE 337 u/l (30-110); ANION GAP 12 (6-22 (CALC)); BILIRUBIN, TOTAL 0.9 mg/dL (0.0-1.4); BUN 15 mg/dL (8-23); BUN/CREATININE RATIO 15 (12-20 (CALC)); CARBON DIOXIDE 22 mmol/l (22-30); CHLORIDE 107 mmol/l (95-108); GFR > 60 ML/MIN (>=60 (CALC)); GFR FOR AFR.AMER. > 60 ML/MIN (>=60 (CALC)); LIPASE 1634 u/l (23-300); POTASSIUM 3.9 mmol/l (3.5-5.1); SGOT/AST 45 u/l (19-48); SODIUM 137 mmol/l (137-146); TOTAL PROTEIN 7.8 g/dL (6.3-8.2)
[2020-03-05 08:55] LABS: ACT PARTIAL THROMBO TIME 26.5 SECONDS (20.0-32.5); PROTHROMBIN TIME 9.7 SECONDS (9.0-12.5)
[2020-03-05] MEDS ORDERED: JANUVIA50 MG PO (10:34)
[2020-03-05 11:15] VITALS: BP 121/67
[2020-03-05 11:20] LABS: URINE BILIRUBIN - DIPSTICK NEGATIVE (NEGATIVE); URINE BLOOD DIPSTICK SMALL (NEGATIVE); URINE COLOR YELLOW; URINE GLUCOSE - DIPSTICK NEGATIVE (NEGATIVE); URINE KETONE NEGATIVE (NEGATIVE); URINE LEUK ESTERASE NEGATIVE (NEGATIVE); URINE NITRITE - DIPSTICK NEGATIVE (Negative); URINE PH 5.5 (4.5-8.0); URINE PROTEIN - DIPSTICK 30 mg/dL (NEG-TRACE); URINE SPECIFIC GRAVITY <=1.005; URINE UROBILINOGEN - DIPSTICK 0.2 E.U./dL (0.2)
== END 2020-03-05 11:15 | disposition short-term general hospital (02) ==
LOC: ED 07:36
DX: K80.62 Calculus of gallbladder and bile duct with acute cholecystitis without obstruction (principal); K85.90 Acute pancreatitis without necrosis or infection, unspecified; J18.9 Pneumonia, unspecified organism; E11.9 Type 2 diabetes mellitus without complications; I10 Essential (primary) hypertension; Z95.5 Presence of coronary angioplasty implant and graft; Z79.4 Long term (current) use of insulin; Z20.828 Contact with and (suspected) exposure to other viral communicable diseases
CPT/HCPCS: Q9967

== ENCOUNTER 2021-09-12 16:34 | Emergency (ER) | payer MEDICARE ==
[~2021-09-12] VITALS: Ht 175.3 cm; Wt 91.0 kg
[~2021-09-12 16:34] MED LIST changes: +COLACE100 MG PO; +JANUVIA50 MG PO
[2021-09-12 18:41] VITALS: BP 127/63
== END 2021-09-12 18:40 | disposition home or self-care (01) ==
LOC: ED 16:34
PROC: 0HQ1XZZ Repair Face Skin, External Approach (ICD-10-PCS; principal; 2021-09-12)
DX: S01.112A Laceration without foreign body of left eyelid and periocular area, initial encounter (principal); F10.10 Alcohol abuse, uncomplicated; I10 Essential (primary) hypertension; E11.9 Type 2 diabetes mellitus without complications; W01.0XXA Fall on same level from slipping, tripping and stumbling without subsequent striking against object, initial encounter; Y92.481 Parking lot as the place of occurrence of the external cause; Z79.4 Long term (current) use of insulin; Z95.5 Presence of coronary angioplasty implant and graft; Z95.1 Presence of aortocoronary bypass graft; Z79.01 Long term (current) use of anticoagulants

== ENCOUNTER 2021-10-29 14:32 | Inpatient (IN) | payer MEDICARE ==
[2021-10-29] VITALS (11 sets, daily range): BP systolic 110–155; BP diastolic 45–70
[~2021-10-29] VITALS: Ht 175.3 cm; Wt 91.6 kg
[~2021-10-29 14:32] MED LIST changes: +PROTONIX20 M1 PO; -PROTONIX40 M2 PO
--- NOTE | 2021-10-29 15:04 | NUR ---
PATIENT ROOMED FROM LOBBY WITH FAMILY AT SIDE IN [facility]. PROVIDER NOTIFIED OF PATIENT STATUS.
[2021-10-29 15:32] LABS: URINE BILIRUBIN - DIPSTICK NEGATIVE (NEGATIVE); URINE BLOOD DIPSTICK NEGATIVE (NEGATIVE); URINE COLOR YELLOW; URINE GLUCOSE - DIPSTICK >=1000 mg/dL (NEGATIVE); URINE KETONE NEGATIVE (NEGATIVE); URINE LEUK ESTERASE NEGATIVE (NEGATIVE); URINE PH 5.5 (4.5-8.0); URINE PROTEIN - DIPSTICK NEGATIVE (NEG-TRACE); URINE SPECIFIC GRAVITY 1.015; URINE UROBILINOGEN - DIPSTICK 0.2 E.U./dL (0.2)
[2021-10-29 15:32] LABS: HEMATOCRIT 37.4 % (39.0-50.0); HEMOGLOBIN 12.2 g/dl (14.0-18.0); IMMATURE GRANULOCYTES 0.3 % (0.0-5.0); MEAN CORPUSCULAR HGB 27.1 pG CALC (26.0-32.0); MEAN CORPUSCULAR HGB CONC 32.6 g/dL CAL (32.0-36.0); NEUT# 9.7 thou/uL (1.82-7.42); RED BLOOD COUNT 4.5 mill/uL (4.70-6.10); RED CELL DISTRI WIDTH 14.6 % (11.5-15.5)
[2021-10-29 15:37] LABS: URINE NITRITE - DIPSTICK NEGATIVE (Negative)
[2021-10-29 15:37] LABS: MEAN CELL VOLUME 83.1 fL CALC (80.0-100.0)
--- NOTE | 2021-10-29 16:00 | NUR ---
PT CONTINUES TO HAVE ABDOMINAL PAIN AND IS ACTIVELY VOMITING.
[2021-10-29 16:19] LABS: ALBUMIN 4.6 g/dL (3.2-5.0); ALKALINE PHOSPHATASE 120 u/l (38-126); AMYLASE 855 u/l (30-110); ANION GAP 17 (6-22 (CALC)); BILIRUBIN, TOTAL 0.7 mg/dL (0.0-1.4); BUN 20 mg/dL (8-23); BUN/CREATININE RATIO 16 (12-20 (CALC)); CARBON DIOXIDE 21 mmol/l (22-30); CHLORIDE 107 mmol/l (95-108); CREATININE 1.2 mg/dL (0.7-1.3); GFR FOR AFR.AMER. > 60 ML/MIN (>=60 (CALC)); GFR OTHER RACES 60 ML/MIN (>=60 (CALC)); POTASSIUM 4.3 mmol/l (3.5-5.1); SGOT/AST 21 u/l (19-48); SODIUM 141 mmol/l (137-146); TOTAL PROTEIN 8.3 g/dL (6.3-8.2)
[2021-10-29 16:28] LABS: LIPASE 6004 u/l (23-300); MYOGLOBIN 45 ng/mL (0 - 121)
--- NOTE | 2021-10-29 17:37 | NUR ---
PT TO BE ADMITTED
--- NOTE | 2021-10-29 19:13 | NUR ---
PATIENT ARRIVED TO 272 VIA STRETCHER. PATIENT TRANSFERED TO BED WITH NO ISSUES. BEDSIDE REPORT RECEIVED FROM RN ADONAY. PATIENT AOX3, NO DISTRESS NOTED. C/O OF ABD PAIN RATED 10/10 ON PAIN SCALE. ABDOMINAL TENDERNES PRESENT IN ALL 4 QUADRANTS ON PALPATION. BOWEL SOUNDS ACTIVE. PHYSICIAN DR. LEBRON NOTIFIED OF ABDOMINAL PAIN FOR ORDERS. PATIENT ORIENTED TO ROOM. FALL PRECAUTIONS EDUCATION PROVIDED AND INITIATED. CALL JUAREZ USE REVIEWED AND WITHIN REACH.
--- NOTE | 2021-10-29 19:19 | NUR ---
Admission Note Report Given to: GAEL RN AT BEDSIDE Transported by: Wheelchair X Stretcher Transported with: X Nurse Transporter X Patent IV O2 Research Technologist Location: ICU X [facility]
[2021-10-30 03:56] VITALS: BP 105/45
--- NOTE | 2021-10-30 04:10 | NUR ---
PATIENT RESTING IN BED. PATIENT DENIES N/V. DISCOMFORT PRESENT IN ABD RATED 3/10 PAIN SCALE. PATIENT STATES TOLERABLE. FALL PRECAUTIONS IN PLACE. CALL JUAREZ WITHIN REACH.
[2021-10-30 05:08] LABS: HEMATOCRIT 34.1 % (39.0-50.0); HEMOGLOBIN 10.8 g/dl (14.0-18.0); IMMATURE GRANULOCYTES 0.2 % (0.0-5.0); MEAN CELL VOLUME 85.3 fL CALC (80.0-100.0); MEAN CORPUSCULAR HGB CONC 31.7 g/dL CAL (32.0-36.0); NEUT# 7.43 thou/uL (1.82-7.42); RED CELL DISTRI WIDTH 14.8 % (11.5-15.5)
[2021-10-30 05:19] LABS: ALKALINE PHOSPHATASE 80 u/l (38-126); ANION GAP 15 (6-22 (CALC)); BILIRUBIN, TOTAL 0.7 mg/dL (0.0-1.4); BUN 16 mg/dL (8-23); BUN/CREATININE RATIO 18 (12-20 (CALC)); CARBON DIOXIDE 19 mmol/l (22-30); CHLORIDE 111 mmol/l (95-108); CREATININE 0.9 mg/dL (0.7-1.3); GFR FOR AFR.AMER. > 60 ML/MIN (>=60 (CALC)); GFR OTHER RACES > 60 ML/MIN (>=60 (CALC)); MAGNESIUM 2.2 mg/dL (1.6-2.3); POTASSIUM 4.1 mmol/l (3.5-5.1); SGOT/AST 19 u/l (19-48); SODIUM 141 mmol/l (137-146)
[2021-10-30 05:25] LABS: ALBUMIN 3.6 g/dL (3.2-5.0); TOTAL PROTEIN 6.3 g/dL (6.3-8.2)
[2021-10-30 06:42] VITALS: BP 121/60
[2021-10-30] MEDS ORDERED: JARDIANCE25 MG PO (07:12)
[2021-10-30] MEDS ORDERED: REPAGLINIDE2 MG PO (07:14)
--- NOTE | 2021-10-30 07:36 | NUR ---
PT RESTING IN HIGH FOWLERS POSITION . A/OX3 ASSESMENT AND VS COMPLETED, HEART RJHYTHM NORMAL .RESPIRAITONS EVENA ND UNLABORED. BOWEL SOUNDS HYPOACTIVE. IV SITE NOTED TO LFA INFUSING WITH NORMALSALINE. PT DENIES ANY PAIN AT THE TIME. PT DENIES NAUSEA AND VOMITING. PT SAFETY PRECAUTIONS IN PLACEWITH CALL LIGHT IN REACH.
[2021-10-30 15:36] VITALS: BP 134/61
--- NOTE | 2021-10-30 16:03 | NUR ---
PT STATES HE IS IN SEVERE PAIN . PT UNABLE TO RECIEVE PAIN MED DUE TO NOT IN TIME RANGE CONTACTED DR VIA PHONE FOR ALTERNATE SOLUTION.
[2021-10-30 18:32] VITALS: BP 139/63
--- NOTE | 2021-10-30 20:00 | NUR ---
PT IN BED AWAKE ALERT AND ORIENTED X 3 NO0 DISTRESS NOTED, PT STATES PAIN IN ABD 09/12, PT ON RA BEATHING NON-LABORED, ASSESSMENT DONE, PT BED IN LOW POSITION, CALL LIGHT IN REACH, WILL CONTINUE TO MONITOR
[2021-10-31] VITALS: BP 120/54
[2021-10-31 05:38] VITALS: BP 110/48
--- NOTE | 2021-10-31 06:05 | NUR ---
PT LAYING IN BED AWAKE NO DISTRESS NOTED, NO OVERNIGHT EVENTS, BED IN LOW POSITION CALL LIGHT IN REACH
[2021-10-31 07:06] VITALS: BP 126/60
[2021-10-31 07:50] VITALS: BP 120/57
--- NOTE | 2021-10-31 07:56 | NUR ---
PT RESTING IN SEMI FOWLERS POSITION. A/OX3 ASSESSMENT AND VS COMPLETED. RECHECK BP TO VEIRFY TO GIVE LOPRESSOR. PROVIDER INFORMED. HEART RHYTHM NORMAL . RESPIRATIONS EVEN AND UNLABORED. BOWEL SOUNDS ACTIVE, PT STATES MINOR PAIN DENIES PAIN MED AT THE MOMENT. ON CLEAR LIQUID DIET. IV SITE NOTED . PT DENIES ADDITONAL NEEDS ALL SAFETY PRECAUTIONS IN PLACE.
[2021-10-31 08:12] VITALS: BP 120/57
--- NOTE | 2021-10-31 12:21 | NUR ---
PT TO BE DC SOON PT OLERATED LUNCH WELL . PROVIDER INFORMED.
--- NOTE | 2021-10-31 13:09 | NUR ---
Discharge instructions given. Patient verbalizes understanding of same. Discharged in stable condition via AMBULATES to Home with staff. All belongings sent with pt.IV REMOVED
== END 2021-10-31 13:00 | disposition home or self-care (01) | DRG 440 ==
LOC: ED 14:32 → ED-I 17:26 → ED 17:41 → MS2 17:42
PROVIDERS: Emergency Medicine; ADMIT Internal Medicine; ATTEND Internal Medicine
DX: K85.30 Drug induced acute pancreatitis without necrosis or infection (principal); T38.3X5A Adverse effect of insulin and oral hypoglycemic [antidiabetic] drugs, initial encounter; I10 Essential (primary) hypertension; E11.40 Type 2 diabetes mellitus with diabetic neuropathy, unspecified; I25.10 Atherosclerotic heart disease of native coronary artery without angina pectoris; E78.5 Hyperlipidemia, unspecified; F17.290 Nicotine dependence, other tobacco product, uncomplicated; Z95.1 Presence of aortocoronary bypass graft; Z95.5 Presence of coronary angioplasty implant and graft; Z79.4 Long term (current) use of insulin; Z90.49 Acquired absence of other specified parts of digestive tract; Z20.822 Contact with and (suspected) exposure to COVID-19
CPT/HCPCS: Q9967; S0164